=== PATIENT | male | born 1940 | race Caucasian/White ===

== ENCOUNTER 2016-11-24 11:21 | Observation (INO) | payer MEDICARE ==
[~2016-11-24] VITALS: Ht 167.6 cm; Wt 74.0 kg
[~2016-11-24 11:21] MED LIST: ASP81TEC; NAM10; ZAN150T; [UNRECOGNIZED DRUG - OTHER]
[2016-11-24 11:39] VITALS: BP 158/91; PULSE 66; RESP 12; O2SAT 99
--- NOTE | 2016-11-24 11:44 | ED.REPORT ---
HPI-Trauma Minor / Fall Date of Service Nov 24, 2016 ED Provider: Casandra Vela History of Present Illness: fell in the night at some point, no clothes on. 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 Increase in falls 4 times yesterday, right wrist, decline in ambulation. minimally verbal, ploudre is primary care. Nursing Notes Stated Complaint: GLF Chief Complaint: General Complaint Nursing Notes Reviewed: Yes Allergies: Coded Allergies: No Known Allergies (Verified , 02/04/08) Scheduled Donepezil (Donepezil) 10 Mg Tablet 10 MG PO HS Scheduled PRN diphenhydrAMINE HCl (Benadryl) 25 Mg Capsule 25 MG PO HS PRN PRN General Time Seen by MD: 11:42 Chief Complaint Fall Hx Obtained From: Daughter Symptom Duration: Since onset Caused by: Accidental Past Medical History Past Medical History Alzheimers Denies: Asthma, Diabetes mellitus Past Surgical History None reported Smoking History Former Smoker (smoked when he was younger), Unknown if Ever Smoker Social History Alcohol Use: "Social" Other Social History: 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 Review of Systems Basic Review of Systems Cardiovascular: No chest pain, No dyspnea on exertion, No orthopnea, No parox noct dyspnea, No palpitations Hematologic: No bleeding, No bruising Psychiatric: Normal thought content Physical Exam Initial Vital Signs Vital Signs (First) Date Time Temp Pulse Resp B/P Pulse Ox O2 Delivery O2 Flow Rate FiO2 11/24/16 11:39 36.6 66 12 158/91 99 Room Air Initial VS: Reviewed, Vital signs normal Head / Eyes: Atraumatic, Normocephalic, PERRL Lymphatic: No lymphadenopathy Psychiatric: Mood/affect normal, Behavior normal, Normal thought content General/Constitutional: Awake, Alert Appearance / Presentation: Positive: Appears older than age, Cachectic, Frail, Underweight Neck: Atraumatic, Supple, No meningismus Respiratory / Chest: Atraumatic, Breath sounds NL, Breath sounds = bilat, No respiratory distress Cardiovascular: Heart rate NL, Regular rhythm, Heart sounds NL, No gallop Abdomen: Atraumatic, Soft, Non-tender Color / Condition: Positive: Rash present Rash / Lesion Notes: patient with rash in groin area with skin break down in skin fold of legs and groin. Chest has mild erthyma in areas. was laying on carpet for unknown length of time Interpretation & Diagnostics Interpretation & Diagnostics: PROCEDURE: X-RAY RIGHT WRIST COMPLETE, MINIMUM THREE VIEWS ([id number]) INDICATIONS: fall TECHNIQUE: 3 views of the wrist were acquired. COMPARISON: None. FINDINGS: Bones: No fractures or dislocations. No suspicious bony lesions. Multilevel joint narrowing, most notably in severe involving the distal radioulnar and first CMC joints. Scaphoid view: Not requested. Soft tissues: No suspicious soft tissue calcifications. IMPRESSION: No displaced fracture seen. If there is continued pain, followup exam or additional imaging such as MRI or CT could be performed for further assessment. Dictated by: Caleb MIRAMONTES Interpreted: Catherine Hamlin MD on 11/24/2016 at 14:04 Transcribed by: AMBROCIO on 11/24/2016 at 14:05 Lab Results Interpretation Result Diagram: 11/24/16 1235 11/24/16 1235 Test 11/24/16 12:17 11/24/16 12:35 Urine Color Yellow (YELLOW) Urine Appearance Hazy (CLEAR,HAZY) Urine pH 5.5 (5.0-8.0) Urine Specific [place] 1.025 (1.003-1.035) Urine Protein Negativemg/dL (NEG,TRACE) Urine Glucose (UA) Negativemg/dL (NEGATIVE) Urine Ketones Tracemg/dL (NEGATIVE) Urine Occult Blood Trace (NEGATIVE) Urine Nitrite Negative (NEGATIVE) Urine Bilirubin Negative (NEGATIVE) Urine Urobilinogen Normalmg/dL (NORMAL) Urine Leukocyte Esterase Negative (NEGATIVE) Urine RBC 0-2/hpf (0-2) Urine WBC 0-5/hpf (0-5) Urine Epithelial Cells Occasional/hpf (NONE-MOD) Urine Crystals None seen (NONE SEEN) Urine Bacteria None/hpf (NONE-FEW) Urine Hyaline Casts Occasional/lpf (NONE) Urine Granular Casts None seen (NONE SEEN) Urine Waxy Casts None seen (NONE SEEN) Urine Red Blood Cell Casts None seen (NONE SEEN) Urine White Blood Cell Casts Rare (NONE SEEN) Urine Mucus Present (None Seen) Urine Trichomonas None seen (NONE SEEN) Urine Yeast None (NONE SEEN) Urinalysis Comment None Urine Culture Reflexed Not indicated White Blood Count 7.2th/mm3 (3.8-10.1) Red Blood Count 4.57mil/mm3 (4.40-5.80) Hemoglobin 14.4g/dL (13.8-17.2) Hematocrit 40.4% (41.0-50.0) Mean Corpuscular Volume 88.4fL (81-100) Mean Corpuscular Hemoglobin 31.5pg (27.0-35.0) Mean Corpuscular Hemoglobin Concent 35.6% (32.0-37.0) Red Cell Distribution Width 12.6% (12.3-15.4) Platelet Count 166bil/L (150-400) Neutrophils (%) (Auto) 72.2% (40-74) Lymphocytes (%) (Auto) 18.0% (14-46) Monocytes (%) (Auto) 9.0% (4-12) Eosinophils (%) (Auto) 0.6% (0-5) Basophils (%) (Auto) 0.1% (0-3) Sodium Level 144mEq/L (134-144) Potassium Level 3.8mEq/L (3.5-5.2) Chloride Level 107mEq/L (97-108) Carbon Dioxide Level 22mmol/L (18-29) Blood Urea Nitrogen 20mg/dL (8-27) Creatinine 0.79mg/dL (0.76-1.27) Estimat Glomerular Filtration Rate 102mL/min (>59) Glucose Level 87mg/dL (60-99) Lactic Acid Level 1.7mmol/L (0.4-2.0) Calcium Level 8.9mg/dL (8.5-10.1) Total Bilirubin 0.6mg/dL (0.0-1.2) Aspartate Amino Transf (AST/SGOT) 20U/L (0-50) Alanine Aminotransferase (ALT/SGPT) 11U/L (0-44) Alkaline Phosphatase 104U/L (25-160) Total Creatine Kinase 294U/L (21-232) Pro-B-Type Natriuretic Peptide 715.5pg/mL (0-486) Total Protein 6.5g/dL (6.4-8.4) Albumin 3.7g/dL (3.4-5.0) X-Ray Chest Interpretation Chest Xray Interpretation: ROCEDURE: X-RAY CHEST ONE VIEW ([id number]) INDICATIONS: fall TECHNIQUE: One view of the chest was acquired. COMPARISON: None. FINDINGS: Surgical changes and devices: None. Lungs and pleura: No pleural effusions or pneumothorax. Lungs are clear. Mediastinum: Mediastinal contours appear normal. Heart size is normal. Bones and chest wall: No suspicious bony lesions. Overlying soft tissues appear unremarkable. IMPRESSION: No acute cardiopulmonary disease. Dictated by: Caleb MIRAMONTES Interpreted: Catherine Hamlin MD on 11/24/2016 at 14:16 Transcribed by: AMBROCIO on 11/24/2016 at 14:16 X-Ray Interpretation Xray Interpretation: PROCEDURE: X-RAY PELVIS WITH BILATERAL HIPS, 3 VIEWS INDICATIONS: fall TECHNIQUE: AP pelvis with lateral view(s) of the right hip(s). COMPARISON: None. FINDINGS: Bones: No fractures or dislocations. Pelvic ring appears intact. No suspicious bony lesions. Soft tissues: The visualized bowel gas pattern is normal. No suspicious soft tissue calcifications. IMPRESSION: No displaced fracture seen. If there is continued pain, followup exam or additional imaging such as MRI or CT could be performed for further assessment. Dictated by: Caleb MIRAMONTES Interpreted: Catherine Hamlin MD on 11/24/2016 at 14:16 Transcribed by: AMBROCIO on 11/24/2016 at 14:17 CT Head Interpretation INDICATIONS: fall TECHNIQUE: Noncontrast 4.5 mm thick angled axial sections acquired from the foramen magnum to the vertex, with coronal reformats. COMPARISON: [facility], CT, CT BRAIN WO CON, 03/31/2016, 23:48. [facility], CT, BRAIN W/O CONTRAST, 02/26/2015, 16:34. [facility] , CT, BRAIN W/O CONTRAST, 01/21/2007, 11:29. FINDINGS: Image quality: Excellent. CSF spaces: Basal cisterns are patent. No extra-axial fluid collections. The ventricles are symmetric in size and shape. Brain: No intracranial bleeds or masses. There is cerebral volume loss for age, with resultant ventricular and sulcal prominence. There are periventricular and deep white matter chronic small vessel ischemic changes. There is intracranial internal carotid artery atherosclerosis. Skull and face: Calvarium and visualized facial bones appear intact, without suspicious lesions. Sinuses: Left maxillary sinus retention cyst. Mild left maxillary sinus mucosal thickening. Left sphenoid sinus retention cyst. IMPRESSION: 1. No acute intracranial abnormality. 2. Sinus disease. Dictated by: Alyson Mendez M.D. on 11/24/2016 at 13:40 Re-Eval/Medical Decision Med Decision/Clinical Course 76 year old male with dementia presents via medics for found down in house this am. Patient was undressed and found laying on chest on carpet with stool incontinence. Work up included EKG, negative troponin, negative head CT, negative chest x-ray, labs normal, pelvis x-ray is negative for fracture as is right wrist. Physical therapy to ER to do evualation. PT states not safe to go home. Patient needs a higher level of care. Discharge & Departure Impression: Primary Impression: Gait disturbance Additional Impressions: Frequent falls Dementia Dementia type: Alzheimer's disease Dementia behavioral disturbance: with behavioral disturbance Disposition: ADMITTED TO HOSPITAL Referrals: Bin Franks MD (PCP) EDSupervising Provider for APC: Jose Gibbs MD copies to: Bin Franks MD, Sue ARNP Nov 24, 2016 11:44
[2016-11-24] MEDS ORDERED: 0.9% Sodium Chloride 1,000 ML IV ONE (12:20)
[2016-11-24 12:41] LABS: BASOPHILS % (AUTO) 0.1 % (0-3); EOSINOPHILS % (AUTO) 0.6 % (0-5); Mean Corpuscular Hemoglobin 31.5 pg (27.0-35.0); Mean Corpuscular Volume 88.4 fL (81-100); NEUTROPHILS % (AUTO) 72.2 % (40-74); Platelet Count 166 bil/L (150-400)
[2016-11-24 13:24] LABS: APPEARANCE,URINE HAZY (CLEAR,HAZY); COLOR,URINE YELLOW (YELLOW); PH,URINE 5.5 (5.0-8.0)
[2016-11-24 13:25] LABS: OCCULT BLOOD,URINE TRACE (NEGATIVE); UROBILINOGEN,URINE NORMAL (NORMAL)
[2016-11-24 13:26] LABS: TROPONIN T < 0.010 ug/L (0.0-0.011)
[2016-11-24 13:27] LABS: Creatine Kinase 294 U/L (21-232)
--- NOTE | 2016-11-24 13:42 | DRSVH ---
PROCEDURE: CT BRAIN WITHOUT CONTRAST ([id number]) INDICATIONS: fall TECHNIQUE: Noncontrast 4.5 mm thick angled axial sections acquired from the foramen magnum to the vertex, with c oronal reformats. COMPARISON: [facility], CT, CT BRAIN WO CON, 03/31/2016, 23:48. [facility], CT, BRAIN W/O CONTRAST, 02/26/2015, 16:34. [facility] , CT, BRAIN W/O CONTRAST, 2006, 11:29. FINDINGS: Image quality: Excellent. CSF spaces: Basal cisterns are patent. No extra-axial fluid collections. The ventricles are symmet angela in size and shape. Brain: No intracranial bleeds or masses. There is cerebral volume loss for age, with resultant vent ricular and sulcal prominence. There are periventricular and deep white matter chronic small vessel ischemic changes. There is intracranial internal carotid artery atherosclerosis. Skull and face: Calvarium and visualized facial bones appear intact, without suspicious lesions. Sinuses: Left maxillary sinus retention cyst. Mild left maxillary sinus mucosal thickening. Left sphe noid sinus retention cyst. IMPRESSION: 1. No acute intracranial abnormality. 2. Sinus disease. Dictated by: Alyson Mendez M.D. on 11/24/2016 at 13:40 Approved by: Alyson Mendez M.D. on 11/24/2016 at 13:41
--- NOTE | 2016-11-24 14:05 | DRSVH ---
PROCEDURE: X-RAY RIGHT WRIST COMPLETE, MINIMUM THREE VIEWS ([id number]) INDICATIONS: fall TECHNIQUE: 3 views of the wrist were acquired. COMPARISON: None. FINDINGS: Bones: No fractures or dislocations. No suspicious bony lesions. Multilevel joint narrowing, most notably in severe involving the distal radioulnar and first CMC joints. Scaphoid view: Not requested. Soft tissues: No suspicious soft tissue calcifications. IMPRESSION: No displaced fracture seen. If there is continued pain, followup exam or additional vargas ging such as MRI or CT could be performed for further assessment. Dictated by: Caleb Patton [facility] Interpreted: Catherine Hamlin MD on 11/24/2016 at 14:04 Transcribed by: AMBROCIO on 11/24/2016 at 14:05 Approved by: Catherine Hamlin MD, PhD on 11/24/2016 at 17:03
--- NOTE | 2016-11-24 14:17 | DRSVH ---
PROCEDURE: X-RAY PELVIS WITH BILATERAL HIPS, 3 VIEWS INDICATIONS: fall TECHNIQUE: AP pelvis with lateral view(s) of the right hip(s). COMPARISON: None. FINDINGS: Bones: No fractures or dislocations. Pelvic ring appears intact. No suspicious bony lesions. Soft tissues: The visualized bowel gas pattern is normal. No suspicious soft tissue calcifications. IMPRESSION: No displaced fracture seen. If there is continued pain, followup exam or additional vargas ging such as MRI or CT could be performed for further assessment. Dictated by: Caleb Patton RRA Interpreted: Catherine Hamlin MD on 11/24/2016 at 14:16 Transcribed by: AMBROCIO on 11/24/2016 at 14:17 Approved by: Catherine Hamlin MD, PhD on 11/24/2016 at 17:04
--- NOTE | 2016-11-24 14:17 | DRSVH ---
PROCEDURE: X-RAY CHEST ONE VIEW ([id number]) INDICATIONS: fall TECHNIQUE: One view of the chest was acquired. COMPARISON: None. FINDINGS: Surgical changes and devices: None. Lungs and pleura: No pleural effusions or pneumothorax. Lungs are clear. Mediastinum: Mediastinal contours appear normal. Heart size is normal. Bones and chest wall: No suspicious bony lesions. Overlying soft tissues appear unremarkable. IMPRESSION: No acute cardiopulmonary disease. Dictated by: Caleb Patton [facility] Interpreted: Catherine Hamlin MD on 11/24/2016 at 14:16 Transcribed by: AMBROCIO on 11/24/2016 at 14:16 Approved by: Catherine Hamlin MD, PhD on 11/24/2016 at 17:04
[2016-11-24 14:40] VITALS: BP 139/74; PULSE 78; PULSE 87; RESP 16; O2SAT 100
--- NOTE | 2016-11-24 15:16 | NUR ---
Evaluation completed. Please go to "Notes" then click on "Assessments and Notes" (bottom left corner of screen). Then select appropriate discipline tab on top of screen.
[2016-11-24] MEDS ORDERED: DIPH25CA6 PO (16:38)
[2016-11-24] MEDS ORDERED: DONE10TA42 PO (16:38)
[2016-11-24] MEDS ORDERED: Alum-Mag Hydrox-Simeth 30 mL Suspension PO PRN (16:40)
[2016-11-24] MEDS ORDERED: Ondansetron 2 mg/mL 2 mL Inj IVPUSH PRN (16:40)
--- NOTE | 2016-11-24 16:46 | PCM.HPMED ---
Subjective Date of Service Nov 24, 2016 Primary Provider: Admitting Physician: Primary Care Physician: Bin Franks MD Attending Physician: Chief Complaint: Found down at home HISTORY was OBTAINED FROM daughter / MEDITECH NOTES History of present illness 76-year-old man with chronic Alzheimer's, fell 4 times yesterday, ie more than baseline x 2 days of falling. When awoken up at 10am, she found him in the living room, and found down with his clothes off with dried and wet stool. In the ER, 1 L normal saline, per PT gait was unstable, noted to have unstable gait today. Pt tends to wander at night. no spine injuries. no new medications. his mumbled speech is baseline per daughter. has visual hallucinations. no vomiting. In the villarreal, ongoing fecal incontinence noted. pt does not wear adult diapers at home. fecal incontinence at baseline is every other month. has control over urine, no sick contacts. "bad knees" never cardiac hx. no symptoms of sinus issues. Review of Systems -unable to give a good hx FAMILY HX father passed from [place] SOCIAL HX no alcohol, distant smoker MEDICATIONS Aspirin-Expunged Drug, Do Not Renew! (Aspirin EC-Expunged Drug, Do Not Renew!) 81 Mg Tablet Memantine-Expunged Drug, Do Not Renew! (Namenda-Expunged Drug, Do Not Renew!) 10 Mg Tablet Ranitidine 150 MG Tablet (Zantac 150 MG Tablet) 150 Mg Tab Past Medical/Surgical HX Psoriasis Alzheimer's GERD Cataracts Limited Parkinson's features tremors Osteoarthritis sleep apnea, noncompliant Exam on admission on room air NAD A and O x 3 mood affect WNL, tremors, poorly cooperative w/ exam NC/AT no icterus no injected eyes EOMI PERRL /no pharyngeal lesions/ no oral lesions / hearing intact Supple neck CTAB equal chest rise / no accessory muscle use / speaks in full sentences / no rrw RRR S1 S2 / no mrg / 2+ radial pulses Soft nt nd + BS no hepatosplenomegaly No edema no cyanosis no ecchymosis of lower extremities No rash / no jaundice HAQUE mumbles , attempts to get out of bed frequently symmetrical facies STudies Trop negative BNP 715 lactic acid negative UA negative LFT negative Imaging PROCEDURE: CT BRAIN WITHOUT CONTRAST ([id number]) INDICATIONS: fall TECHNIQUE: Noncontrast 4.5 mm thick angled axial sections acquired from the foramen magnum to the vertex, with coronal reformats. COMPARISON: [facility], CT, CT BRAIN WO CON, 03/31/2016, 23:48. [facility], CT, BRAIN W/O CONTRAST, 02/26/2015, 16:34. [facility] , CT, BRAIN W/O CONTRAST, 01/21/2007, 11:29. FINDINGS: Image quality: Excellent. CSF spaces: Basal cisterns are patent. No extra-axial fluid collections. The ventricles are symmetric in size and shape. Brain: No intracranial bleeds or masses. There is cerebral volume loss for age , with resultant ventricular and sulcal prominence. There are periventricular and deep white matter chronic small vessel ischemic changes. There is intracranial internal carotid artery atherosclerosis. Skull and face: Calvarium and visualized facial bones appear intact, without suspicious lesions. Sinuses: Left maxillary sinus retention cyst. Mild left maxillary sinus mucosal thickening. Left sphenoid sinus retention cyst. IMPRESSION: 1. No acute intracranial abnormality. 2. Sinus disease. PROCEDURE: X-RAY CHEST ONE VIEW ([id number]) INDICATIONS: fall TECHNIQUE: One view of the chest was acquired. COMPARISON: None. FINDINGS: Surgical changes and devices: None. Lungs and pleura: No pleural effusions or pneumothorax. Lungs are clear. Mediastinum: Mediastinal contours appear normal. Heart size is normal. Bones and chest wall: No suspicious bony lesions. Overlying soft tissues appear unremarkable. IMPRESSION: No acute cardiopulmonary disease. PROCEDURE: X-RAY PELVIS WITH BILATERAL HIPS, 3 VIEWS INDICATIONS: fall TECHNIQUE: AP pelvis with lateral view(s) of the right hip(s). COMPARISON: None. FINDINGS: Bones: No fractures or dislocations. Pelvic ring appears intact. No suspicious bony lesions. Soft tissues: The visualized bowel gas pattern is normal. No suspicious soft tissue calcifications. IMPRESSION: No displaced fracture seen. If there is continued pain, followup exam or additional imaging such as MRI or CT could be performed for further assessment. PROCEDURE: X-RAY RIGHT WRIST COMPLETE, MINIMUM THREE VIEWS ([id number]) INDICATIONS: fall TECHNIQUE: 3 views of the wrist were acquired. COMPARISON: None. FINDINGS: Bones: No fractures or dislocations. No suspicious bony lesions. Multilevel joint narrowing, most notably in severe involving the distal radioulnar and first CMC joints. Scaphoid view: Not requested. Soft tissues: No suspicious soft tissue calcifications. IMPRESSION: No displaced fracture seen. If there is continued pain, followup exam or additional imaging such as MRI or CT could be performed for further assessment. Active issues and reason for admission Generalized weakness, baseline mentation, knee arthritis, wanders due to Alzheimers, intermittent fecal incontinence at home -- TSH serial troponin bladder scan --elevated BNP - pending echo, no CHF symptom - never cardiac hx per daughter though Groin erythema diarrhea --nystatin powder -- Stool culture / c diff Chronic issues known prior to admission, present on admission Psoriasis Alzheimer's GERD Cataracts Limited Parkinson's features tremors Osteoarthritis sleep apnea, noncompliant Diet regular diet DVT prophylaxis falling, just scd ambulate Code Full - daughter to talk w/ mother and sister for update tomorrow Disposition OBS status social service director to be consultative, per PT not a candidate for rehabilitation due to Alzheimer's, not a candidate to go home is 74 years old and cannot provide 24 hour 7 day a week care for him Assessment and plan were discussed with daughter Hodan. Allergies Coded Allergies: No Known Allergies (Verified , 02/04/08) PMH Social History Hx Alcohol Use: No Hx Substance Use: No Smoking Status: Former Smoker (smoked when he was younger), Unknown if Ever Smoker Exam Vital Signs Vital Sign - Last Date Time Temp Pulse Resp B/P Pulse Ox O2 Delivery O2 Flow Rate FiO2 11/24/16 14:40 35.3 87 16 139/74 100 Room Air Lab and Diagnostics Result Diagram: 11/24/16 1235 11/24/16 1235 Rosanna Marie MD Nov 24, 2016 16:46
--- NOTE | 2016-11-24 18:45 | NUR ---
Admit Patient admitted to [facility] via gurney, oriented to self only. Limited verbal response otherwise pleasant. Family in bedside, oriented to room and unit. IV on left wrist, saline lock, patent. Family concerned of him being awake tonight, rose marie alarm in placed. SWW to follow up placement to residential care Memory in the morning. Admission assessment to be finished by ALEX RN. Thanks.
[2016-11-24 18:50] VITALS: BP 154/70; PULSE 59; RESP 17; O2SAT 98
[2016-11-24] MEDS ORDERED: diphenhydrAMINE 25 mg Capsule PO PRN (21:15)
[2016-11-25 02:51] VITALS: BP 156/79; PULSE 59; RESP 17; O2SAT 99
--- NOTE | 2016-11-25 06:04 | NUR ---
Shift Note Assumed pt care at 1900, pt alert only to self, baseline confusion, redirectable, pt up to bsc x1, occasionally dribbles urine wears adult briefs, IV on L wrist SL, pt placed close to nursing station, bed and rose marie alarm on for safety, qhrly checks done throughout night.
--- NOTE | 2016-11-25 06:52 | PCM.PNMED ---
Subjective Date of Service Nov 25, 2016 Subjective no events overnight - unsafe at home - needing memory care unit. no reports of sob/cp - confused Exam Vital Signs Vital Sign - Last Date Time Temp Pulse Resp B/P Pulse Ox O2 Delivery O2 Flow Rate FiO2 11/25/16 02:51 36.9 59 17 156/79 99 Room Air Intake and Output 11/24/16 11/24/16 11/25/16 Cumulative From/Thru 15:00 23:00 07:00 11/24/16 11:39 - 11/25/16 05:01 Intake Total 1000 ml 100 ml 1100 ml Output Total 350 ml 350 ml Balance 1000 ml -250 ml 750 ml Intake Oral 100 ml 100 ml IV Total 1000 ml 1000 ml Output Urine Total 350 ml 350 ml Bladder Scan Volume Amount 244 # Voids 2 2 Exam NAD A/0x1 NC/AT no icterus no injected eyes EOMI PERRL /no pharyngeal lesions/ no oral lesions Supple neck, no jvd CTAB equal chest rise / no accessory muscle use / speaks in full sentences / no rrw RRR S1 S2 / no mrg / 2+ radial pulses Soft nt nd + BS no hepatosplenomegaly No edema no cyanosis no ecchymosis of lower extremities No rash / no jaundice HAQUE no focal deficits IVs and Medications Medications Reviewed: Medications were reviewed in detail Lab and Diagnostics Result Diagram: 11/24/16 1235 11/24/16 1235 X-Rays, CTs and MRIs CT IMPRESSION: 1. No acute intracranial abnormality. 2. Sinus disease. Dictated by: Alyson Mendez M.D. on 11/24/2016 at 13:40 Assessment & Plan Active issues and reason for admission Generalized weakness, baseline mentation, knee arthritis, wanders due to Alzheimers, intermittent fecal incontinence at home -- TSH, neg troponin --elevated BNP - pending echo, no CHF symptom - never cardiac hx per daughter though Groin erythema diarrhea --nystatin powder -- Stool culture / c diff, pending Chronic issues known prior to admission, present on admission Psoriasis Alzheimer's GERD Cataracts Limited Parkinson's features tremors Osteoarthritis sleep apnea, noncompliant Diet regular diet DVT prophylaxis falling, just scd ambulate Code Full - daughter to talk w/ mother and sister for update tomorrow - needs placement, appreiciate SW help Disposition OBS status social security benefits interviewer to be consultative, per PT not a candidate for rehabilitation due to Alzheimer's, not a candidate to go home is 74 years old and cannot provide 24 hour 7 day a week care for him Pain Evaluation: Adequate Pain Control GI Prophylaxis: Not indicated VTE Prophylaxis: Sub-Q Heparin (Unfractionated) Resuscitation Status: CPR: Attempt Resuscitation Time spent 35 minutes spent with eval and mgmt Attending Statement Dispo: pending placement or family plans for private care? Michael Del Rosario DO Nov 25, 2016 06:52
[2016-11-25 07:50] LABS: BASOPHILS % (AUTO) 0.2 % (0-3); EOSINOPHILS % (AUTO) 4.8 % (0-5); MONOCYTES % (AUTO) 8.8 % (4-12); Mean Corpuscular Hemoglobin 31.7 pg (27.0-35.0); Mean Corpuscular Volume 89.2 fL (81-100); NEUTROPHILS % (AUTO) 54.5 % (40-74); Platelet Count 160 bil/L (150-400)
[2016-11-25 08:10] LABS: Free Thyroxine Index 2.5 (1.2-4.9); Thyroxine (T4) 8.2 ug/dL (4.5-12.0)
[2016-11-25] MEDS: Nystatin 100,000 Unit/Gm 15 Gm Powder TOPICAL SCH ×2 (08:14→08:30)
[2016-11-25] MEDS ORDERED: Heparin 5,000 Unit/mL Inj SUBQ SCH (08:30)
--- NOTE | 2016-11-25 08:30 | NUR ---
Nystatin No redness noted in groin region, powder not applied.
--- NOTE | 2016-11-25 08:43 | NUR ---
mobility Pt attempting to get OOB. Had both legs over side rail. Easily re-directable Stating mom is in hospital in [facility] Thinks he is 89 years old.
--- NOTE | 2016-11-25 10:26 | NUR ---
daughter reports mentation and alertness is better than it has been in weeks. She reports pt able to dress self (clothes not always matching) Usually stays home, able to ambulate per self Dtr cooks/cleans/showers - when allows. hx sleep apnea - has refused cpap mask x1yr. has frequent rest periods - partially due to alzheimers/jessee
[2016-11-25 11:10] VITALS: BP 144/83; PULSE 58; RESP 20; O2SAT 99
--- NOTE | 2016-11-25 12:42 | NUR ---
FIDE explained to pt's daughter who is at bedside and signed, copy provided. Notice of nonpayment was explained, and signed by pt's yesterday.
--- NOTE | 2016-11-25 13:57 | PCM.DIMED ---
Discharge Instructions Date of Service Nov 25, 2016 Dates of Hospitalization Nov 24, 2016 at 16:39 Discharge Diagnosis Discharge Diagnosis Generalized weakness, baseline mentation, knee arthritis, wanders due to Alzheimers, intermittent fecal incontinence at home -- TSH-nl, neg troponin --elevated BNP - pending echo, but without clinical sx of CHF -per daughter no cardiac hx Groin erythema diarrhea --nystatin powder- to continue BID until symptoms resolved Chronic issues known prior to admission, present on admission Psoriasis Alzheimer's GERD Cataracts Limited Parkinson's features tremors Osteoarthritis sleep apnea, noncompliant Medication Instructions nystatin powder prescribed Test Results cardiac echo completed Diet No restrictions Activity Home Health Phyical Therapy Patient Instructions Please f/u with your PCP in 1 week you have been discharged with home health PT to optimized your function and strength/mobility Follow-up plan as above Follow-up Provider: Bin Franks MD Follow-up with PCP in: 1 week Michael Del Rosario DO Nov 25, 2016 13:57
--- NOTE | 2016-11-25 14:09 | NUR ---
ECHO Called [email or web address] inquiring when results would be posted to chart as DC is pending on the results. They stated that a message will be sent to Dr Cummins stating this. Will continue to monitor.
[2016-11-25] MEDS ORDERED: NYST1POW25 TOPICAL (14:45)
--- NOTE | 2016-11-25 14:50 | PCM.DC.MED ---
Discharge Summary Date of Service Nov 25, 2016 Dates of Hospitalization Date of Hospital Admission Nov 24, 2016 at 16:39 Date of Discharge: Nov 25, 2016 Providers: Admitting Physician: Rosanna Marie MD Primary Care Physician: Bin Franks MD Attending Physician: Rosanna Marie MD Diagnosis at Time of Discharge Diagnosis at Time of Discharge Generalized weakness, baseline mentation, knee arthritis, wanders due to Alzheimers, intermittent fecal incontinence at home Groin erythem Chronic issues known prior to admission, present on admission Psoriasis Alzheimer's GERD Cataracts Limited Parkinson's features tremors Osteoarthritis sleep apnea, noncompliant Procedures XRay, CTs & MRIs CT IMPRESSION: 1. No acute intracranial abnormality. 2. Sinus disease. Dictated by: Alyson Mendez M.D. on 11/24/2016 at 13:40 Other Diagnostics neg pelvis, wrist, chest, and brain CT Brief History HPI as per admitting physician: History of present illness 76-year-old man with chronic Alzheimer's, fell 4 times yesterday, ie more than baseline x 2 days of falling. When awoken up at 10am, she found him in the living room, and found down with his clothes off with dried and wet stool. In the ER, 1 L normal saline, per PT gait was unstable, noted to have unstable gait today. Pt tends to wander at night. no spine injuries. no new medications. his mumbled speech is baseline per daughter. has visual hallucinations. no vomiting. In the villarreal, ongoing fecal incontinence noted. pt does not wear adult diapers at home. fecal incontinence at baseline is every other month. has control over urine, no sick contacts. "bad knees" never cardiac hx. no symptoms of sinus issues. Review of Systems -unable to give a good hx Hospital Course Active issues and reason for admission Generalized weakness, baseline mentation, knee arthritis, wanders due to Alzheimers, intermittent fecal incontinence at home -- TSH, neg troponin --elevated BNP - pending echo, no CHF symptom - never cardiac hx per daughter though Groin erythema diarrhea --nystatin powder -- Stool culture / c diff, pending Chronic issues known prior to admission, present on admission Psoriasis Alzheimer's GERD Cataracts Limited Parkinson's features tremors Osteoarthritis sleep apnea, noncompliant Diet regular diet DVT prophylaxis falling, just scd ambulate Code Full - daughter to talk w/ mother and sister for update tomorrow - needs placement, appreiciate SW help Disposition OBS status healthcare social worker to be consultative, per PT not a candidate for rehabilitation due to Alzheimer's, not a candidate to go home is 74 years old and cannot provide 24 hour 7 day a week care for him Exam Vital Signs (Last) Date Time Temp Pulse Resp B/P Pulse Ox O2 Delivery O2 Flow Rate FiO2 11/25/16 11:10 36.9 58 20 144/83 99 Room Air Exam NAD A/0x1 NC/AT no icterus no injected eyes EOMI PERRL /no pharyngeal lesions/ no oral lesions Supple neck, no jvd CTAB equal chest rise / no accessory muscle use / speaks in full sentences / no rrw RRR S1 S2 / no mrg / 2+ radial pulses Soft nt nd + BS no hepatosplenomegaly No edema no cyanosis no ecchymosis of lower extremities No rash / no jaundice HAQUE no focal deficits Test 11/24/16 12:17 11/24/16 12:25 11/24/16 12:35 11/24/16 18:06 Urine Color Yellow (YELLOW) Urine Appearance Hazy (CLEAR,HAZY) Urine pH 5.5 (5.0-8.0) Urine Specific [place] 1.025 (1.003-1.035) Urine Protein Negativemg/dL (NEG,TRACE) Urine Glucose (UA) Negativemg/dL (NEGATIVE) Urine Ketones Tracemg/dL (NEGATIVE) Urine Occult Blood Trace (NEGATIVE) Urine Nitrite Negative (NEGATIVE) Urine Bilirubin Negative (NEGATIVE) Urine Urobilinogen Normalmg/dL (NORMAL) Urine Leukocyte Esterase Negative (NEGATIVE) Urine RBC 0-2/hpf (0-2) Urine WBC 0-5/hpf (0-5) Urine Epithelial Cells Occasional/hpf (NONE-MOD) Urine Crystals None seen (NONE SEEN) Urine Bacteria None/hpf (NONE-FEW) Urine Hyaline Casts Occasional/lpf (NONE) Urine Granular Casts None seen (NONE SEEN) Urine Waxy Casts None seen (NONE SEEN) Urine Red Blood Cell Casts None seen (NONE SEEN) Urine White Blood Cell Casts Rare (NONE SEEN) Urine Mucus Present (None Seen) Urine Trichomonas None seen (NONE SEEN) Urine Yeast None (NONE SEEN) Urinalysis Comment None Urine Culture Reflexed Not indicated Lactic Acid Level 1.7mmol/L (0.4-2.0) Total Bilirubin 0.6mg/dL (0.0-1.2) Aspartate Amino Transf (AST/SGOT) 20U/L (0-50) Alanine Aminotransferase (ALT/SGPT) 11U/L (0-44) Alkaline Phosphatase 104U/L (25-160) Total Creatine Kinase 294U/L (21-232) Pro-B-Type Natriuretic Peptide 715.5pg/mL (0-486) Total Protein 6.5g/dL (6.4-8.4) Albumin 3.7g/dL (3.4-5.0) Ammonia 51ug/dL (18-53) Troponin T < 0.010ug/L (0.0-0.011) Thyroid Stimulating Hormone (TSH) 3.610uIU/mL (0.450-4.500) Free Thyroxine Index 2.5 (1.2-4.9) Thyroxine (T4) 8.2ug/dL (4.5-12.0) Triiodothyronine (T3) Uptake 30% (24-39) Test 11/25/16 07:15 White Blood Count 5.4th/mm3 (3.8-10.1) Red Blood Count 4.26mil/mm3 (4.40-5.80) Hemoglobin 13.5g/dL (13.8-17.2) Hematocrit 38.0% (41.0-50.0) Mean Corpuscular Volume 89.2fL (81-100) Mean Corpuscular Hemoglobin 31.7pg (27.0-35.0) Mean Corpuscular Hemoglobin Concent 35.5% (32.0-37.0) Red Cell Distribution Width 12.7% (12.3-15.4) Platelet Count 160bil/L (150-400) Neutrophils (%) (Auto) 54.5% (40-74) Lymphocytes (%) (Auto) 31.7% (14-46) Monocytes (%) (Auto) 8.8% (4-12) Eosinophils (%) (Auto) 4.8% (0-5) Basophils (%) (Auto) 0.2% (0-3) Sodium Level 143mEq/L (134-144) Potassium Level 3.8mEq/L (3.5-5.2) Chloride Level 108mEq/L (97-108) Carbon Dioxide Level 23mmol/L (18-29) Blood Urea Nitrogen 17mg/dL (8-27) Creatinine 0.89mg/dL (0.76-1.27) Estimat Glomerular Filtration Rate 89mL/min (>59) Glucose Level 93mg/dL (60-99) Calcium Level 8.8mg/dL (8.5-10.1) Discharge Medications Discharge Medications Donepezil (Donepezil) 10 Mg Tablet 10 MG PO HS (Reported) Nystatin (Nystatin) 1 Each Powder.ea. 1 APPLIC TOPICAL BID Prescribed by: GERARD JOHNSTON DO Additional med instructions nystatin powder prescribed Followup Plan Follow-up plan as above Discharge Diet: No restrictions Discharge Activity: Home Health Phyical Therapy Patient Instructions Please f/u with your PCP in 1 week you have been discharged with home health PT to optimized your function and strength/mobility Please apply nystatin powder twice daily to affected area until resolved or x 2wks with PCP f/u and discussion of sx Follow-up Provider: Bin Franks MD Follow-up with PCP in: 1 week Time spent 40 minutes spent with eval and mgmt copies to: Bin Franks MD, David DO Nov 25, 2016 14:50
--- NOTE | 2016-11-25 14:52 | DRSVH ---
[facility] [address] [place] [address] Echocardiogram Report Name: MARIAM OGLESBY EStudy Date: 11/25/2016 Height: 66 in Hospital Exam Location: [facility] Weight: 163 lb Gender: Male BSA: 1.8 m2 : 1940 Age: 76 yrs BP: 156/ 79 mmHg Reason For Study: Elevated BNP Ordering Physician: HOSPITALIST [facility] Performed By: Lalita Perez Referring Physician: Dr. Bin Franks Interpretation Summary Sinus bradycardia with frequent PAC's. Heart rate is 52-66 bpm. Normal LV size, wall thickness, wall motion and LV systolic function. EF is 60-65%. Stage I diastolic dysfunction. Aortic sclerosis without stenosis with mild associated AI. Otherwise no significant valvular abnormalities. Normal chamber sizes. No prior study available for comparison. Procedure: A two-dimensional transthoracic echocardiogram with color flow and Doppler was performed. There is no prior echocardiogram noted for this patient. The study quality was technically adequate. The patient was in sinus bradycardia with heart rates between 52-66 bpm during the exam. The patient had frequent PACs during the exam. Left Ventricle: The left ventricular cavity is small. There is normal left ventricular wall thickness. Left ventricular wall motion is normal. Assessment of diastolic parameters indicates a relaxation abnormality of the left ventricle, consistent with normal filling pressures. Right Ventricle: The right ventricle is normal in size and function. Atria: Both atria are normal in size. There is no Doppler evidence for an interatrial shunt. Mitral Valve: The mitral valve is grossly normal. There is no mitral regurgitation noted. Aortic Valve: The aortic valve is normal in structure and function. There is trace aortic regurgitation. Tricuspid Valve: The tricuspid valve is not well visualized, but is grossly normal. There is a trace or physiologic amount of tricuspid regurgitation. The right ventricular systolic pressure is estimated at 30 mmHg assuming a right atrial pressure of 8 mm Hg. Pulmonic Valve: The pulmonic valve is normal in structure and function. There is a trace or physiologic amount of pulmonic regurgitation. Great Vessels: The aortic root is normal size. The IVC is of normal diameter and collapses less than 50% with a sniff. This suggests a right atrial pressure of 8 mm Hg. Pericardium/ Pleura There is no pericardial effusion. MMode/2D Measurements & Calculations LVIDd: 4.1 cm RA long axis LVOT diam LVIDs: 2.5 cm LA A2 area: 14.8 cm FS: 39.1 % LA A4 area: 23.3 cm RA area Ao root diam IVSd: 0.83 cm LA length (vol): 5.3 cm LVPWd: 0.93 cm LA vol: 54.8 ml : 16.3 cm Aortic Jxn LA vol index RA vol: 46.3 ml : 2.7 cm RA : 25.2 mm2 IVC diam: 1.7 cm LV trejo. diameter/BSA LV sys. diameter/BSA RVD1 (basal) TAPSE: 2.4 cm (cm/m^2): 2.2 (cm/m^2): 1.4 Doppler Measurements & Calculations Ao V2 max MV E max huan MV E/A: 0.64 TR max huan : 108.2 cm/sec : 45.8 cm/sec Med Peak E' Huan : 234.0 cm/sec Ao max PG MV A max huan TR max PG : 4.7 mmHg : 71.4 cm/sec E/E' med: 11.2 : 21.9 mmHg Ao mean PG MV P1/2t: 80.3 msec Pulm A Revs Dur PA V2 max : 67.5 cm/sec LVOT Max Huan MV A dur: 0.12 sec PA mean PG : 66.3 cm/sec : 0.99 mmHg PA Accel Time URSULA(I,D): 2.4 cm : 0.13 sec sev ratio MV dec time MV P1/2t max huan Ao V2 mean LV V1 max PG : 0.27 sec : 67.2 cm/sec MVA(P1/2t): 2.7 cm2 Ao V2 VTI: 21.1 cm LV V1 VTI URSULA(V,D): 2.3 cm2 : 13.6 cm PA V2 mean URSULA indexed to BSA Pulm A Revs Dur - MV : 46.0 cm/sec (cm^2/m^2): 1.3 A Dur: 0.01 msec Reading Physician:02:48 PM
--- NOTE | 2016-11-25 16:24 | NUR ---
Social Work Note: Initial Assessment/Discharge Data& Assessment: EMR reviewed. [facility] met with pt and pt daughter Valerie ([phone]) at bedside to discuss discharge planning, SW role explained. Enrique Love is a 76 year old male hospitalized on 11/24/2016 for "unsafe to send home, needs higher level of care." Per MD pt is medically ready for discharge. Echo was negative. Pt has [employer] Medicare insurance coverage and sees Bin Yap MD for primary care. Pt lives in [place] with his spouse. Pt has Alzheimer's at baseline but is independent with most ADL's and ambulation without any DME. Pt does not have LTC insurance or VA benefits. Pt does not drive. Pt daughter brings meals to the home daily, does chores around the house and ensures pt is bathing. Pt had a recent fall and was found down with feces. Pt family was concerned about any injuries which pt was cleared from. Pt daughter has been working on Medicaid applications and LTC planning for the last few months. Pt daughter has been visiting local Memory care units and adult family homes to see which would be the best fit for pt. Pt daughter plans for pt to pay privately for LTC for pt, at least initially. Pt daughter recited many resources she already has at home and denied any needs from [facility]. Pt does meet criteria for Home health services, is homebound and is not at his baseline mobility due to fall. Pt family and MD are agreeable to home health PT, RN, JULIA, [facility] to follow pt at time of discharge. Pt daughter explained that pt is open with [employer] and they would prefer that company. F2F faxed to [facility] with [facility], access provided and verbal confirmation from [facility] took place. Pt daughter Yolanda transporting pt home today. Pt and pt family deny any other needs. No other discharge needs identified. MD notified and agreeable to plan. Plan: Per MD pt is medically ready to discharge home via POV with [facility] PT, RN, and [facility] and [facility]. Pt and pt family deny any other needs. No other discharge needs identified. All updated and agreeable to plan. JANEL Foley Addendum: 11/25/16 at 1632 by ANGIE WATTERS Amended: Links added.
--- NOTE | 2016-11-25 18:20 | NUR ---
Discharge Reviewed DC instructions with Daughter Hodan, stated understanding. All belongings taken. Pt taken out in w/ch to home in private auto with family. Script sent in packet.
== END 2016-11-25 18:20 | disposition home health service (06) ==
LOC: EDUNIT# 11:21 → SED 11:21 → EDBD 11:21 → MOC 16:39
PROVIDERS: ADMIT Urology; ATTEND Urology
DX: R53.1 Weakness (principal); R29.6 Repeated falls; G30.9 Alzheimer's disease, unspecified; F02.81 Dementia in other diseases classified elsewhere, unspecified severity, with behavioral disturbance; Z91.83 Wandering in diseases classified elsewhere; E11.9 Type 2 diabetes mellitus without complications; J45.909 Unspecified asthma, uncomplicated; K21.9 Gastro-esophageal reflux disease without esophagitis; L40.9 Psoriasis, unspecified; G47.30 Sleep apnea, unspecified; M17.9 Osteoarthritis of knee, unspecified; R15.9 Full incontinence of feces; R19.7 Diarrhea, unspecified; L53.9 Erythematous condition, unspecified; H26.9 Unspecified cataract; G20 Parkinson's disease
CPT/HCPCS: 36415; 51798; 70450; 71010; 73110; 73522; 80048; 80053; 81000; 82140; 82306; 82550; 83605; 83880; 84436; 84443; 84479; 84484; 85025; 87804; 93005; 96360; 97162; 99285; C8929; G0378; J1644; J7030

== ENCOUNTER 2017-03-18 08:36 | Inpatient (IN) | payer MEDICARE ==
[~2017-03-18] VITALS: Ht 167.6 cm; Wt 64.5 kg
[~2017-03-18 08:36] MED LIST changes: -ASP81TEC; +DONE10TA42 PO; -NAM10; +NYST1POW25 TOPICAL; -ZAN150T; -[UNRECOGNIZED DRUG - OTHER]
[2017-03-18 08:53] VITALS: BP 133/81; PULSE 74; RESP 20; O2SAT 98
--- NOTE | 2017-03-18 08:55 | ED.REPORT ---
HPI-General Illness Date of Service Mar 18, 2017 ED Provider: Tico Gomez MD A 76 year old male with a history of Alzheimer's and frequent GLF's presents to the ED via EMS from [facility] with decreased appetite that began earlier this morning. Patient was sent to the ED after his fig caprifier began to express concern when he refused to eat his breakfast this morning. The patient's daughter reports that he has been progressively declining since being placed in the home in 02/2017 and has not been eating much for the past 4 weeks. He has become increasingly weak and "lethargic" with less coherent speech. Patient was recently admitted in 11/2016 for generalized weakness and groin erythema. Nursing Notes Stated Complaint: DEMENTIA Chief Complaint: General Complaint Nursing Notes Reviewed: Yes Allergies: Coded Allergies: aripiprazole (Verified Allergy, Unknown, makes him "crazy", 03/18/17) quetiapine (Verified Allergy, Unknown, makes him "crazy", 03/18/17) Scheduled Aspirin (Aspirin) 81 Mg Tablet 81 MG PO DAILY Donepezil (Donepezil) 10 Mg Tablet 10 MG PO HS Ibuprofen (Ibuprofen) 800 Mg Tablet 800 MG PO DAILY Ranitidine (Ranitidine) 150 Mg Capsule 150 MG PO BID Trazodone (Trazodone) 50 Mg Tablet 25 MG PO HS Scheduled PRN Acetaminophen (Acetaminophen) 325 Mg Capsule 650 MG PO Q4H PRN PRN For Pain Bisacodyl (Dulcolax Rectal) 10 Mg Supp.rect 10 MG RC DAILY PRN PRN For Constipation Lorazepam (Lorazepam) 0.5 Mg Tablet 0.5 MG PO BID PRN PRN For Anxiety Magnesium Hydroxide (Milk of Magnesia) 400 Mg/5 Ml Oral.susp 30 ML PO DAILY PRN PRN For Constipation General Time Seen by MD: 08:54 Chief Complaint Other (Decreased appetite) Hx Obtained From: Patient Arrived By: Ambulance Sudden in Onset?: No Onset Occurred: More than a week ago... 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 Physical Exam Vital Signs Vital Signs Date Time Temp Pulse Resp B/P Pulse Ox O2 Delivery O2 Flow Rate FiO2 03/18/17 12:30 80 20 126/68 96 Room Air 03/18/17 12:00 95 22 142/76 96 Room Air 03/18/17 11:00 80 20 143/75 98 Room Air 03/18/17 08:53 37 74 20 133/81 98 Room Air Initial VS: Reviewed Neck: Supple, Non-tender, Full range of motion Extremities: Vascular intact, Neuro intact, No swelling, No tenderness Skin: Warm, Dry, No cyanosis General/Constitutional: Awake GENERAL: Verablly unresponsive Head / Eyes: Atraumatic, Normocephalic, PERRL ENT: Atraumatic, Airway patent Mouth: Positive: Mucous membranes dry Respiratory / Chest: Atraumatic, Breath sounds NL, Breath sounds = bilat, No respiratory distress Cardiovascular: Heart rate NL, Regular rhythm, Heart sounds NL, No murmurs Abdomen: Atraumatic, Soft Interpretation & Diagnostics Lab Results Interpretation Result Diagram: 03/18/17 0935 03/18/17 0935 Test 03/18/17 09:35 03/18/17 11:40 White Blood Count 8.6th/mm3 (3.8-10.1) Red Blood Count 4.89mil/mm3 (4.40-5.80) Hemoglobin 15.8g/dL (13.8-17.2) Hematocrit 44.6% (41.0-50.0) Mean Corpuscular Volume 91.2fL (81-100) Mean Corpuscular Hemoglobin 32.3pg (27.0-35.0) Mean Corpuscular Hemoglobin Concent 35.4% (32.0-37.0) Red Cell Distribution Width 13.2% (12.3-15.4) Platelet Count 149bil/L (150-400) Neutrophils (%) (Auto) 76.7% (40-74) Lymphocytes (%) (Auto) 16.0% (14-46) Monocytes (%) (Auto) 6.1% (4-12) Eosinophils (%) (Auto) 1.0% (0-5) Basophils (%) (Auto) 0.1% (0-3) Prothrombin Time 11.5sec (8.1-12.5) Prothromb Time International Ratio 1.07ratio Sodium Level 153mEq/L (134-144) Potassium Level 3.7mEq/L (3.5-5.2) Chloride Level 114mEq/L (97-108) Carbon Dioxide Level 24mmol/L (18-29) Blood Urea Nitrogen 31mg/dL (8-27) Creatinine 0.88mg/dL (0.76-1.27) Estimat Glomerular Filtration Rate 90mL/min (>59) Glucose Level 100mg/dL (60-99) Calcium Level 9.3mg/dL (8.5-10.1) Magnesium Level 2.4mg/dL (1.6-2.6) Total Bilirubin 1.8mg/dL (0.0-1.2) Aspartate Amino Transf (AST/SGOT) 25U/L (0-50) Alanine Aminotransferase (ALT/SGPT) 29U/L (0-44) Alkaline Phosphatase 102U/L (25-160) Total Protein 7.3g/dL (6.4-8.4) Albumin 3.8g/dL (3.4-5.0) Hold Mark Top Tube Received (Received) Hold Urine Received (Received) X-Ray Chest Interpretation Chest Xray Interpretation: IMPRESSION: No acute pulmonary process. Dictated by: Lynne Hart M.D. on 03/18/2017 at 9:55 Interpretation / Wet Read by: Interpret - Radiologist Re-Eval/Medical Decision Med Decision/Clinical Course 76-year-old male history of dementia sent in by school nurse facility for not eating well today. Per family he has not been eating well for quite some time. He appears quite dehydrated on exam. Sodium is 153. He chokes when swallowing water on bedside evaluation. Discussed extensively with family and they would like us to pursue admission for his hypernatremia and dehydration and difficulty eating. Admitted to hospitalist. I did discuss CODE STATUS with them and they requested DNR/DNI. Time of Eval: 09:11 Re-Evaluation/Progress Note: Family is offered a full work-up. They would like lab work and decline CT at this time. Time of Eval: 10:54 Re-Evaluation/Progress Note: Patient fails bedside swallow. Family agrees to meet with TELE RN to discuss hospice resources. Time of Eval: 11:27 Re-Evaluation/Progress Note: Family is informed of the patient's lab results and X-ray results. When asked about the discharge care plan, the patient's would like to have the pt admitted. Time of Eval: 11:30 Re-Evaluation/Progress Note: Code status is discussed with the patient's family. They express that the patient would like to be DNR/DNI. Consultation : Referral / Consult Name: LancasterRaegangemini HAJI Consulted With: Hospitalist Call Returned at: 11:53 Rap Artist: Will see patient, Agrees with eval, Agrees with plan, Accepts admit Counseled Regarding: Diagnosis, Lab results, Need for admission Discharge & Departure Primary Impression: Hypernatremia Additional Impressions: Dehydration Dementia Dementia type: Alzheimer's disease Alzheimer's disease onset: late-onset Dementia behavioral disturbance: without behavioral disturbance Qualified Code : G30.1 - Alzheimer's disease with late onset Dysphagia Dysphagia type: unspecified Qualified Code: R13.10 - Dysphagia, unspecified Disposition: ADMITTED TO HOSPITAL Discharge Condition All VS Reviewed: Yes Condition: Stable Referrals: Bin Franks MD (PCP) Scribe Attestation Portions of this note were transcribed by Guille Fairchild. I, Dr. Gomez personally performed the history, physical exam and medical decision-making; I reviewed and confirmed the accuracy of the information in the transcribed note. Signed by: Shabnam Cárdenas, 03/18/17 [id number]. copies to: Bin Franks MD, Ben M MD Mar 18, 2017 08:55 GUILLE FAIRCHILD Mar 18, 2017 09:02
[2017-03-18] MEDS ORDERED: 0.9% Sodium Chloride 500 ML IV ONE (09:15)
[2017-03-18] MEDS ORDERED: Ondansetron 2 mg/mL 2 mL Inj IVPUSH PRN ×2 (09:15→12:00)
--- NOTE | 2017-03-18 09:57 | DRSVH ---
PROCEDURE: X-RAY CHEST ONE VIEW, PORTABLE ([id number]) INDICATIONS: lethargy, altered mental status TECHNIQUE: One view of the chest was acquired. COMPARISON: [facility], CR, XR CHEST 1VW, 11/24/2016, 13:01. FINDINGS: Surgical changes and devices: None. Lungs and pleura: No pleural effusions or pneumothorax. Lungs are clear. Mediastinum: Mediastinal contours appear normal. Heart size is normal. Bones and chest wall: No suspicious bony lesions. Overlying soft tissues appear unremarkable. IMPRESSION: No acute pulmonary process. Dictated by: Lynne Hart M.D. on 03/18/2017 at 9:55 Approved by: Lynne Hart M.D. on 03/18/2017 at 9:55
[2017-03-18 10:09] LABS: BASOPHILS % (AUTO) 0.1 % (0-3); MONOCYTES % (AUTO) 6.1 % (4-12); Mean Corpuscular Hemoglobin 32.3 pg (27.0-35.0); Mean Corpuscular Volume 91.2 fL (81-100); NEUTROPHILS % (AUTO) 76.7 % (40-74); Platelet Count 149 bil/L (150-400)
[2017-03-18 10:12] LABS: INR 1.07 ratio
[2017-03-18 10:24] LABS: Magnesium 2.4 mg/dL (1.6-2.6)
[2017-03-18 11:00] VITALS: BP 143/75; PULSE 80; RESP 20; O2SAT 98
[2017-03-18] MEDS ORDERED: ASPI-973 PO (11:55)
[2017-03-18] MEDS ORDERED: RANI150C4 PO (11:56)
[2017-03-18] MEDS ORDERED: IBUP800T28 PO (11:56)
[2017-03-18] MEDS: Dextrose 5% 1,000 ML IV SCH ×2 (11:57→19:12)
[2017-03-18] MEDS ORDERED: LORA0.5T PO (11:57)
[2017-03-18] MEDS ORDERED: BISA10SU61 RC (11:57)
[2017-03-18] MEDS ORDERED: MAGN400O4 PO (11:58)
[2017-03-18] MEDS ORDERED: TRAZ-115 PO (11:59)
[2017-03-18] MEDS ORDERED: ACET325C PO (11:59)
[2017-03-18 12:00] VITALS: BP 142/76; PULSE 95; RESP 22; O2SAT 96
[2017-03-18] MEDS ORDERED: Alum-Mag Hydrox-Simeth 30 mL Suspension PO PRN (12:00)
[2017-03-18 12:30] VITALS: BP 126/68; PULSE 80; RESP 20; O2SAT 96
--- NOTE | 2017-03-18 12:30 | NUR ---
Evaluation completed. Please go to "Notes" then click on "Assessments and Notes" (bottom left corner of screen). Then select appropriate discipline tab on top of screen.
[2017-03-18 13:24] VITALS: BP 122/76; PULSE 65; RESP 24; O2SAT 96
[2017-03-18] MEDS ORDERED: Polyethylene Glycol (PEG) 17 Gm Powder PO PRN (14:55)
--- NOTE | 2017-03-18 14:57 | NUR ---
Arrived from ER: Patient arrived from the ER at 1330. Patient has his eyes closed ans is basically not responding when spoken to or with sternal rub or touch. Patient has his mouth open and is mouth breathing in a deep sleep. His Temp is 36.3 b/p 122/76 pulse 65 resp 24 02 sat 96% on room air. Patient has IV fluids running and per MD IV fluids will be held until lab results are available. Per ER nurse patient did receive 1 liter of NS in the ER. Patients daughters and are at bedside. Update in patients status was given to [facility] [place] where patient lives. Patient does not appear to be in any distress or pain. Mouth care was performed with oral sponges and mouth moisturizer and water. Patient is repositioned every 2 hours and for comfort.
--- NOTE | 2017-03-18 15:01 | PCM.PNMED ---
Subjective Date of Service Mar 18, 2017 Exam Vital Signs Vital Sign - Last Date Time Temp Pulse Resp B/P Pulse Ox O2 Delivery O2 Flow Rate FiO2 03/18/17 13:24 36.3 65 24 122/76 96 Room Air Lab and Diagnostics Result Diagram: 03/18/17 0935 03/18/17 0935 Raegan Lancaster DO Mar 18, 2017 15:01
--- NOTE | 2017-03-18 15:10 | PCM.HPMED ---
Subjective Date of Service Mar 18, 2017 Primary Provider: Admitting Physician: Raegan Lancaster DO Primary Care Physician: Bin Franks MD Attending Physician: Raegan Lancaster DO Admit Status: From the Emergency Department Chief Complaint: Anorexia, hyponatremia History of Present Illness: This is 76 yo male with severe dementia diagnosed whern 63, was placed in [facility] care due to repeated falls. Family says he is hallucinating and tried to orange picking supervisor things he shouldn't also have scoliosis, due to which he leans to one side and has an imbalance of gait. He was fine until last week, family has not seen him for some time. [facility] staff called today saying he is not eating. fam think he was probably accepting some po but not drinking fluids. He has no c/o nausea, vomiting, diarrhea, fevers or pain. Staff at [facility] noted that he was roaming around all night, sleeping during the day. Currently he is fast asleep, awaking only briefly, nurse says he was sitting at the edge of the bed not that long ago. [facility] staff also noted similar behavior. In the eR, CXR was done non acute, no CT because family decided not to since he had one in november. Labs showed hyponatremia at 153, 1L bolus NSS was given then D5W 100 cc/hr was started. Labs allo showed bilirubin of 1.8. VSS. Family says he was talking to them in the ED. UA was done, result pending at this time. Family has never considered peg tubes as pt was eating fine till 1-2 weeks ago. They say he has tolerated haldol ok in the past, pt did not need any psych meds at the facility Patient is admitted to blue team for anorexia and symptomatic hyponatremia likely secondary to dehydration Review of Systems: Patient cannot provide a review of systems Family no no fevers, chills, constipation, diarrhea or urological symptoms. They do think he has a sore throat and hallucinations Allergies Coded Allergies: aripiprazole (Verified Allergy, Unknown, makes him "crazy", 03/18/17) quetiapine (Verified Allergy, Unknown, makes him "crazy", 03/18/17) Home Medications The patient's medication included donepezil, nystatin, ibuprofen, ranitidine, trazodone PMH Past medical history history is remarkable for early onset enzymes dementia, frequent ground-level falls, prostate problem, obstructive sleep apnea for which patient has been noncompliant, GERD, psoriasis, osteoarthritis Surgical History None Family History Mom from heart attack Dad of unknown causes 2 brothers had cancer and one brother had multiple sclerosis Social History 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 eyes poorly reactive ( baseline has eye problems like cataracts) psych: no agitation Neck: No masses, trachea midline, no thyromegaly Lungs: CTA with normal respiratory effort, no crackles or wheezes CV: RRR, no murmurs/rubs/gallops, normal PMI Skin: Warm and dry. Psych: Drowsy Lab and Diagnostics Result Diagram: 03/18/17 0935 03/18/17 0935 Microbiology PROCEDURE: US ABDOMEN ([id number]) INDICATIONS: elevated bili IMPRESSION: 1. Limited examination. 2. Diffuse increased echogenicity within the gallbladder possibly related to sludge or gallbladder calcification. Dictated by: Lynne Hart M.D. on 03/18/2017 at 20:38 Approved by: Lynne Hart M.D. on 03/18/2017 at 20:41 PROCEDURE: X-RAY CHEST ONE VIEW, PORTABLE ([id number]) INDICATIONS: lethargy, altered mental status IMPRESSION: No acute pulmonary process. Dictated by: Lynne Hart M.D. on 03/18/2017 at 9:55 Approved by: Lynne Hart M.D. on 03/18/2017 at 9:55 Assessment & Plan #1 Anorexia: Cholelithiasis, oropharyngeal kalyn, dementia, hypernatremia related encephalopathy -- Stop D5W., stat BMP showed improved Na 152 -- check random glucose -- ABG are ordered showed no concern for CO2 retention -- Ammonia levels are normal, troponin is normal -- Keep nothing by mouth until patient is more alert and oriented -- D5 half-normal saline with potassium 20 meq ordered -- TBW: 39 Free Water deficit: 39(14/140) =3.9L -- Change in sodium per L 1/2 NSS infusate= 77/40= 1.9, can not give more than 250 cc/hr -- Consider switching back to D5W if adjustment in sodium is not achieved. -- Q3H Na checks -- Swallow evaluation -- Mycelex troches -- Discuss PEG tube placement with family if patient continues to not eat, while pursuing other options #2 is Alzheimer's Dementia chronic active -- psych consult: Left message for Dr. Dong, follow up in the a.m. -- hold po meds, patient is somnolent -- Consider MRI, patient is unable to follow commands #3 Gerd chronic active iv famotidine 20 mg twice a day #4 insomnia chronic active -- hold medication trazodone #5 anxiety chronic active -- hold home medication lorazepam #6 prostate problem chronic active -- Patient has no home medications VTE Prophylaxis: Sub-Q Enoxaparin, Sub-Q Fondaparinux Resuscitation Status: DNR/DNI:Do Not Resuscitate/Intubate Time spent 45 min Raegan Lancaster DO Mar 18, 2017 15:09
--- NOTE | 2017-03-18 15:27 | ABG ---
DateTimeAnalyzed 15:18:19 -_ pH ____7.447 - 7.350 7.450 pCO2 ___39.3__ -mmHg 35.0 45.0 pO2 ___79.9__ -mmHg 70.0 100 HCO3- ___27.1__ -mmol/L 22.0 26.0 ABE ____2.9__ -mmol/L -2.0 2.0 tHb ___14.6__ -g/dL 12.0 18.0 O2Hb ___95.3__ -% 95.0 COHb ____1.4__ -% 1.5 MetHb ____0.1__ -% 0.4 1.5 sO2 ___96.8__ -% 25.0 FIO2 ___21.0__ -% Drawn By RC - Date/Time Notified____ 15:27:00 -_ Notified By RC - Notified Whom __hawkins - K+ ____3.4__ -mmol/L tO2 ___19.7__ -Vol% Bello test _Positive -
[2017-03-18 16:08] LABS: Magnesium 2.3 mg/dL (1.6-2.6)
[2017-03-18 16:17] LABS: TROPONIN T < 0.010 ug/L (0.0-0.011)
--- NOTE | 2017-03-18 17:22 | NUR ---
LOC/Skin assessment: Patient did open his eyes at 1700 . Responded when spoken to. Greeted his . Patient has severe dementia at baseline. Patient has open area/skin tear at gluteal Cleft and a red sacral area. A Mepilex dressing was placed over area. Patient is turned side to side and bridged off of his bottom. Addendum: 03/18/17 at 1746 by ANDRES BURNS RN Patient has not been with it enough to safely take oral meds .
[2017-03-18] MEDS: Clotrimazole Troche 10 mg Tablet MT SCH ×2 (17:30→20:36)
[2017-03-18] MEDS: D5 0.45% NaCl + KCl 20 mEq/L 1,000 ML IV SCH (17:30)
[2017-03-18 20:43] VITALS: BP 129/75; PULSE 64; RESP 20; O2SAT 96
--- NOTE | 2017-03-18 20:43 | DRSVH ---
PROCEDURE: US ABDOMEN ([id number]) INDICATIONS: elevated bili TECHNIQUE: Real-time scanning was performed of the abdominal and retroperitoneal organs, with image documentatio n. COMPARISON: None. FINDINGS: Examination is limited secondary to patient body habitus and cooperative ability. Liver: Liver is normal in size and homogeneous in echotexture. Gallbladder: Gallbladder is poorly visualized with an appearance of diffuse increased echogenicity. Biliary ducts: Intrahepatic bile ducts are non-dilated. No gross balloon dilation. Normal is 6-7 mm or less in diameter, or 10 mm or less post-cholecystectomy. Pancreas: Visualized portions of the pancreas are sonographically normal. Spleen: Spleen is not visualized. Kidneys: Kidneys are normal in size and echotexture. Right kidney measures 8.7 cm long; left kidney measures 0.9 cm long. No hydronephrosis or nephrolithiasis. No solid masses. Aorta: Visualized aorta is normal in caliber at less than 3 cm. Iliacs: Proximal common iliac arteries are normal in caliber at less than 2.5 cm. IVC: Intrahepatic inferior vena cava is patent. Miscellaneous: No free abdominal fluid. IMPRESSION: 1. Limited examination. 2. Diffuse increased echogenicity within the gallbladder possibly related to sludge or gallbladder ca lcification. Dictated by: Lynne Hart M.D. on 03/18/2017 at 20:38 Approved by: Lynne Hart M.D. on 03/18/2017 at 20:41
[2017-03-19] MEDS: D5 0.45% NaCl + KCl 20 mEq/L 1,000 ML IV SCH ×2 (03:44→17:32)
[2017-03-19 04:40] VITALS: BP 130/76; PULSE 60; RESP 20; O2SAT 96
--- NOTE | 2017-03-19 04:46 | NUR ---
hematuria Pt had small amount of fresh red blood in brief when changing brief. Pt was straight cathed in ED. Will continue to monitor.
[2017-03-19] MEDS: Clotrimazole Troche 10 mg Tablet MT SCH ×5 (06:00→19:48)
--- NOTE | 2017-03-19 06:36 | NUR ---
urination Pt had 2 large, very wet brief changes. Some bright red blood in brief, 4 to 5 drops.
[2017-03-19] MEDS: Dextrose 5% 1,000 ML IV SCH (07:45)
[2017-03-19 08:20] VITALS: BP 139/84; PULSE 63; RESP 16; O2SAT 97
--- NOTE | 2017-03-19 11:39 | NUR ---
NUTRITION CONSULT ASSESS: 76YO M admit with h/o severe dementia and reports of refusal/decreased po intake x 2wks at memory care unit. MD notes indicate possible discussion with family re PEG tube, palliative care team consulted. Pt is DNR/DNI. Currently not alert to safely take medications per RN notes. ST has cleared for stim diet. PMHX: Severe dementia, GERD DIET: Stimulation. Refusal x 1 meal LABS: Alb 3.4, PAB 14, GLu 122, Na 152 MEDS: Reviewed GI: No BM WEIGHT: 64.5kg, Wt in 11/2016:74kg BMI: 23.0 Noted weight loss of 13% x 4mos. EST.NEEDS: WEIGHT GAIN (30-35kcal/kg;1.2-1.5g/kg IBW) Kcal: 1115-5467 Pro: 80-95g NUTRITION DIAGNOSIS: (1) Severe malnutrition in the context of chronic illness related to altered mental status/severe dementia with decreased po intake x 2wks as evidenced by 13% weight loss x 4months, currently refusing stimulation diet. INTERVENTION: (1) Add supplements (magic cup) as diet advances. (2) Monitor for POC/potential for PEG tube. TF recommendations as follows: Jevity 1.5 at 10ml/hr advancing 10ml q 12 hrs to goal rate of 55ml/hr with H20 flush of 55ml q 2 hrs to provide 1897kca, 81g protein, 1621ml fluid. MONITOR/EVALUATE: Nutrition needs, potential for tube feeding, labs, diet advancement per ST, overall POC. F/U per high risk.
[2017-03-19] MEDS ORDERED: 0.45% Sodium Chloride 250 ML in IV Bag 1 EACH IV ONE (12:05)
--- NOTE | 2017-03-19 13:21 | NUR ---
Social Work Note - Initial assessment Enrique Love is a 76 yr old who was admitted for hyponatremia. EMR reviewed: Pt has [facility]. His PCP is Dr Franks. No VA or LTC insurance. DPOA paperwork in EMR. No readmission score available. See attached CM initial assessment. SAW OFFBEARER met with pt's family - and daughters. Introduced D/C planning and explained SW role. SAW OFFBEARER provided D/C planning Checklist. [facility] lives at [facility] - Has lived there for the past 30 days. Prior to that he was living with his . He has advancing dementia and per Keyla Shaver RN [facility] [phone] he is full care. He has been refusing to eat and drink. He becomes agitated at times. He has a walker, but forgets/refuses to eat. He has been falling a lot at [facility]. Yesterday he became unresponsive, had not eaten in several days. Pt's family states that they know that he had dementia, that it is advancing. They would like to talk with Palliative Care about goals of care and learn more about the disease process. Pt's is familiar with hospice, but is not sure if now is the time to have hospice services. Palliative Care orders in place. Family anticipates that pt will return to [facility] - may be appropriate for hospice services. Plan: Developing - Pending Palliative care consult. TAMIKO Antoine Addendum: 03/19/17 at 1327 by MARILU ARCEO SS Amended: Links added.
--- NOTE | 2017-03-19 13:36 | NUR ---
Palliative care note D/A: Palliative care referral received today from Dr. Pagan, for assistance with goals of care. Pt is 76 yom, who was dx'ed with dementia in his early 60's. Per review of chart, it appears that he was placed only recently at facility locally, [facility] in [place]. Pt seen by speech therapy who notes that pt admitted with a reduced appetite and reduced intake. He is noted to frequently fall and suffers from severe confusion as well as a weak swallow. Spouse is Calista Love at [phone]. Pt has two daughters listed, Hodan Hoyt at [phone] and Valerie (last name unknown) at [phone]. P: Palliative care to follow. Mayelin MORRISON, CCM
--- NOTE | 2017-03-19 14:40 | CONS ---
[address] [address] CONSULTATION REPORT PATIENT: MARIAM OGLESBY : 1940 MR#: [id number] ADMIT: 03/18/2017 JOB ID: [id number] DATE OF SERVICE: 03/19/2017 IDENTIFICATION: The patient is a 76-year-old, white male, to his for over 50 years. His is his main caregiver. He has been suffering with progressive Alzheimer's for 10 years and is currently in an Alzheimer unit, "[facility]" assisted care in [place]. He has three children and 10 grandchildren. REASON FOR ADMISSION: Client to the emergency department via EMS from the assisted care unit, [facility], for agitation, being a fall risk, and unable to the eat. HISTORY OF PRESENT ILLNESS: I was consulted today by the internal medicine service regarding the patient. He presents with encephalopathy related to hypernatremia as well as anorexia, insomnia, anxiety, and a progressive Alzheimer's disorder for the past 10 years. The Alzheimer's has been present for 10 years and it is present of a rather severe intensity. Client is essentially nonverbal and was unable to follow even simple commands. Although he has been struggling with progressive decline in memory and functioning since being placed in the Alzheimer unit in February 2017, he has essentially not been eating for four weeks, appears increasingly weak and lethargic and increasingly incoherent in speech. I reviewed his course and records kept by [facility]. I had a family session and gathered history from his , his two children, and Keyla, a vocational case manager from [facility] assisted care. They state all the above symptoms got worse when he was taken out of the home. They stated the most important thing to him is his family, his home, and his dog. It appears that he is not responding well to the change in environment. The vocational case manager from [facility] stated he could not settle down, could not sit or lay down, and as a result, would end up falling. They have tried courses of Abilify and Seroquel which only produced more confusion and agitation. They tried a course of donepezil and have noticed no significant improvement in cognitive function or communication. At present, he is presenting with signs of extreme cognitive deficits. His coping skills are overwhelmed and his judgment and insight are both severely impaired. Client could not participate in review of systems questions for psychiatric or physical review of systems. MEDICATIONS: 1. Aspirin. 2. Donepezil 10 daily. 3. Ibuprofen. 4. Ranitidine. 5. Trazodone 25 h.s. ALLERGIES: 1. ABILIFY. 2. SEROQUEL. ILLNESSES: Alzheimer's, gastroesophageal reflux disease, cholelithiasis, oral Alejandrina, hypernatremia. FAMILY MEDICAL HISTORY: Noncontributory. PAST PSYCHIATRIC HISTORY: None. PSYCHOSOCIAL HISTORY: Client was born in [place], [place]. 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 He does not have a history of trauma nor drug and alcohol use. He does not have a history of psychiatric disorders, depression or previous suicide attempt. ins 1964 and is currently to his , for the past 51 years. BAPTISM: Devout Yazdanism. They attend [employer] in [place]. LEGAL HISTORY: None. PHYSICAL EXAMINATION: Vital signs within normal limits. LABORATORY: CBC normal. Electrolytes positive for sodium at 152. MENTAL STATUS: Client in bed, appearing frail, with poor eye contact. His behavior was lethargic, attitude aloof and detached. Speech: Mute. Thought process: Client unable to relate a coherent history. Thought content not applicable. Insight and judgment severely impaired. Impulse control: Unable to delay impulses of fear. Competence to handle current stressors: Is currently being overwhelmed. IMPRESSION: The patient is a 76-year-old, white male, who comes in with a devoted family who have been caring for him and helping him through Alzheimer's for the past 10 years. They state there has been a progressive decline in cognitive functioning, physical weakness and speech over the past four weeks. He was placed in the [facility] assisted care in February 2017. Client has been tried on trials of trazodone, Abilify, Seroquel, and anti-Alzheimer's medications. The family reports little to no benefit with these medications and significant side effects. They asked for DO NOT RESUSCITATE and DO NOT INTUBATE and are hoping for palliative care to make their father's life more comfortable. DIAGNOSIS: [place] I. Dementia, Alzheimer's. [place] II. Defer. [place] III. Encephalopathy, anorexia, gastroesophageal reflux disease, cholelithiasis, oral Alejandrina, Hypernatremia. [place] IV. Severe, moving to assisted residential. [place] V. Current Global Assessment of Functioning equal to 20. PLAN: Would recommend continuing low-dose trazodone at night 25 mg h.s. Could consider changing to Remeron 7.5 mg h.s. to minimize side effects of trazodone. I would refrain from neuroleptics such as Abilify, Seroquel, or Haldol, given client's fragile state and bad reactions to relatively low doses of Abilify and Seroquel. Would encourage family and staff to move more towards palliative care. Would continue the donepezil for the time being. Thank you for a very interesting consult. I truly enjoyed meeting with the family and the patient.
[2017-03-19 15:44] VITALS: BP 130/75; PULSE 68; RESP 18; O2SAT 98
--- NOTE | 2017-03-19 16:21 | PCM.PNMED ---
Subjective Date of Service Mar 19, 2017 Subjective Patient remains minimally responsive to verbal stimuli, breathing is labored. He demonstrates some evidence of mild distress occasional wincing with motion but does not appear in significant pain at least. She comes in by family at bedside who confirm that his comfort is paramount but would like to consider some interventions if possible to provide him some improved duration and quality of life. Exam Vital Signs Vital Sign - Last Date Time Temp Pulse Resp B/P Pulse Ox O2 Delivery O2 Flow Rate FiO2 03/19/17 15:44 37.0 68 18 130/75 98 Room Air Intake and Output 03/18/17 03/18/17 03/19/17 Cumulative From/Thru 15:00 23:00 07:00 03/18/17 09:45 - 03/19/17 06:03 Intake Total 2000 ml 0 ml 0 ml 2000 ml Balance 2000 ml 0 ml 0 ml 2000 ml Intake Oral 0 ml 0 ml 0 ml IV Total 2000 ml 2000 ml # Voids 1 2 3 General: Moderate Distress, Other (patient is lying bed is closed mouth open breathing is mildly labored. He is not immediately responsive to verbal stimuli occasionally appears to gesture and motion at one time opens his eyes during our exam briefly appears to look about some intention but still unable to answer any questions directly. ) Mouth: Mucous Membranes Dry Chest & Lungs: Clear to auscultation & percussion Cardiovascular: Regular Rate/Rhythm Skin: Other (significant tenting of skin, report turgor) IVs and Medications Medications Reviewed: Medications were reviewed in detail Lab and Diagnostics Result Diagram: 03/18/17 0935 03/19/17 0605 Microbiology PROCEDURE: US ABDOMEN ([id number]) INDICATIONS: elevated bili IMPRESSION: 1. Limited examination. 2. Diffuse increased echogenicity within the gallbladder possibly related to sludge or gallbladder calcification. Dictated by: Lynne Hart M.D. on 03/18/2017 at 20:38 Approved by: Lynne Hart M.D. on 03/18/2017 at 20:41 PROCEDURE: X-RAY CHEST ONE VIEW, PORTABLE ([id number]) INDICATIONS: lethargy, altered mental status IMPRESSION: No acute pulmonary process. Dictated by: Lynne Hart M.D. on 03/18/2017 at 9:55 Approved by: Lynne Hart M.D. on 03/18/2017 at 9:55 Assessment & Plan #1 Anorexia: Cholelithiasis, oropharyngeal kalyn, dementia, hypernatremia related encephalopathy -- Stop D5W., We will continue with D5 half-normal saline at 100 mL per hour at this time, continue poor urine output. -- check random glucose -- ABG are ordered showed no concern for CO2 retention -- Ammonia levels are normal, troponin is normal -- Keep nothing by mouth until patient is more alert and oriented -- TBW: 39 Free Water deficit: 39(14/140) =3.9L -- Change in sodium per L 1/2 NSS infusate= 77/40= 1.9, can not give more than 250 cc/hr -- Consider switching back to D5W if adjustment in sodium is not achieved. -- Swallow evaluation pending improved mentation -- Mycelex layla -- Discuss PEG tube placement with family if patient continues to not eat, while pursuing other options, has care has been consulted to discuss this further. #2 is Alzheimer's Dementia chronic active -- psych consulted, recommending limiting neuroleptics when possible to prevent further sedation. Given patient's nonresponsive status appears much more they were able to contribute. Agree with plan for positive consultation. -- hold po meds, patient is somnolent s #3 Gerd chronic active iv famotidine 20 mg twice a day #4 insomnia chronic active -- hold medication trazodone #5 anxiety chronic active -- hold home medication lorazepam #6 prostate problem chronic active -- Patient has no home medications Pain Evaluation: Adequate Pain Control VTE Prophylaxis: Sub-Q Enoxaparin, Sub-Q Fondaparinux Resuscitation Status: DNR/DNI:Do Not Resuscitate/Intubate Time spent 35 minutes Cornelio Pagan DO Mar 19, 2017 16:21
--- NOTE | 2017-03-19 16:29 | NUR ---
Somnolence/output Pt. very somnolent all day today, opening eyes occasionally but not speaking or following commands. Frequent oral care and skin care. Pt. has been voiding every two hours moderate amounts of brownish/red tinged urine.
[2017-03-19 21:36] VITALS: BP 117/73; PULSE 71; RESP 18; O2SAT 96
[2017-03-20 00:31] VITALS: BP 113/65; PULSE 58; RESP 18; O2SAT 95
[2017-03-20] MEDS: D5 0.45% NaCl + KCl 20 mEq/L 1,000 ML IV SCH ×3 (03:08→14:56)
--- NOTE | 2017-03-20 03:41 | NUR ---
activity Pt more alert with family in room, smiling and watching everyone. Daughter came for the night. Pt more cooperative with cares.
[2017-03-20 04:39] VITALS: BP 152/84; PULSE 64; RESP 20; O2SAT 95
--- NOTE | 2017-03-20 04:53 | NUR ---
Urine Pt has brown urine in briefs, no noted pain, s/s of discomfort. Will monitor.
[2017-03-20] MEDS: Clotrimazole Troche 10 mg Tablet MT SCH ×2 (06:00→10:00)
[2017-03-20 06:06] LABS: BASOPHILS % (AUTO) 0.2 % (0-3); EOSINOPHILS % (AUTO) 2.7 % (0-5); MONOCYTES % (AUTO) 8.6 % (4-12); Mean Corpuscular Hemoglobin 32.2 pg (27.0-35.0); Mean Corpuscular Volume 88.7 fL (81-100); NEUTROPHILS % (AUTO) 66.1 % (40-74); Platelet Count 137 bil/L (150-400)
[2017-03-20 09:59] VITALS: BP 139/72; PULSE 57; RESP 18; O2SAT 98
--- NOTE | 2017-03-20 10:55 | NUR ---
Palliative care note D/A: Case discussed in dc planning rounds today. PC to plan for family meeting regarding prognosis and goals of care. Family has inquired about feeding tube/PEG. Spouse has expressed that she may feel as though she is ending his life should care be withheld. Medical team reflects that family may need direction and support. Pt currently not taking orals. Family wonders if they might want to bring pt in for fluids each time he decompensates. Met with spouse in pt room. Provided PC brochure and card. Arranged for 2:00 FCTM for today. Spouse indicates that they have family coming up today from [place] and it is anticipated that they will arrive in time for 2:00 mtg. Msg left for amelia Zamorano. Dr. Herrera aware. Have also called and left message for Chaplain Noel about family possibly benefitting from visit. Mayelin MORRISON dcp
--- NOTE | 2017-03-20 11:37 | NUR ---
MYA signed by daughter.
[2017-03-20] MEDS: Nystatin 100,000 Unit/mL 5 mL Suspension PO SCH ×2 (14:01→18:13)
--- NOTE | 2017-03-20 15:04 | NUR ---
spiritual care: palliative care referral conversational visit with family. family coping, preparing for palliative conf and processing medical/prognosis. Pt goes by "Gene" family explained history of nickname. Brother, kassandra, and dtrs in room. granddtr expected on sunday.
[2017-03-20] MEDS ORDERED: Fluconazole Inj 200 MG in IV Premix 1 EACH IV ONE (15:20)
--- NOTE | 2017-03-20 15:31 | PCM.CONPAL ---
Date of Service Mar 20, 2017 Date of Hospital Admission: Mar 18, 2017 at 12:37 Date of Palliative Consult: Mar 20, 2017 Requesting Provider: Cornelio Pagan DO Reason Palliative Care Consult: Other Symptoms, Advance Care Planning, Goals of Care Discussion, Hospice Referral & Discussion Hospital Unit @time of consult: Medical/Pediatric Care Palliative Care Recommendation Summary of palliative recommendations: -Symptom management (Pain/other) EOL- reviewed progression of dementia and that even though he cannot express himself verbally he can refuse food and fluid and that can be respected. Reviewed expected processes EOL. She is will to accept that he is probably at this point. Literature given. His and daughters are all in agreement that goal at this time is for comfort. They agree with IV hydration at this time but understand that if he refuses food and fluids that repeated hospitalization or more aggressive treatments like feeding tube would not likely be to his benefit and would only prolong his dying process Oral Candidiasis- will treat with dose of fluconazole for comfort and to minimize the impact of this on his taking of food and fluid -DPOA/Advanced Directives/POLST-DPOAHC and POLST completed as per Calista- his . Has POLST but should be redone at discharge to reflect goal to change to comfort. for now will continue with limited interventions to include IV fluids. -Family/emotional support-large presence of family in room. Family support is strong. -Spiritual support-Has seen the lens grinder rough and feel very well supported in this process. Additional Medical Diagnoses with primary management by Hospitalist team include : Hypernatremia dehydration-IV fluids. High risk for falls if he awakens. Problems: End of Life Preferences DNR/DNI with goal for comfort care when discharged from hospital Goals of Care Comfort with hopes for hospice involvement for support at [facility]. Finances are an issue. One daughter is working on this. Disposition Probably back to [facility] with hospice support. Info visit tomorrow. Resuscitation Status Resuscitation Status: DNR/DNI:Do Not Resuscitate/Intubate POLST Updates/Changes Previous POLST?: Yes POLST Discussed with: Spouse/Other . Advanced Care Planning Address: Comfort care Pt History History of Present Illness PALLIATIVE CARE CONSULTATION REQUESTING-Dr. Tico Pagan REASON-goals of care, advanced care planning and sx management PCP Dr. Dominick Franks Hx taken from his chart review and interview with his Calista and his 3 daughters-Valerie, Hodan and Isabel 76 yo patient with hx of progressive dementia thought to be Alzheimer's with onset age 63 who had been at home under the care of his until February when he was placed in [facility]. He had been walking but with frequent falls, variable food intake but 6 weeks ago ate a hamburger etc.He had been hospitalized in November for weakness, multiple falls and did a bit better with some IV hydration otherwise has avoided hospitalizations. Over the last 6 weeks he has had a decline in his PO intake-sometimes refusing meals even when still at home but worse at [facility]. He has become incont of stool/urine- part of which is just not recognizing when he should go. He was admitted with dehydration, oral kalyn infection and has been treated with IV hydration. He strikes out at nursing trying to treat with oral nystatin and any attempt to feed him ice cream or water. He spit out his pills given. He has had day night switch for sometime-predating his move to [facility]. Until recently he was able to mostly dress himself and feed himself-but not in 6 weeks. He has had many falls over the past 6 months and he has become fairly nonverbal except occasional anger outburst. He seemed to become more agitated with antipsychotics and seemed to have no response to aricept or namenda. He has liked to walk including outside and had been doing that until this week at [facility]. 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 ROS otherwise difficult to assess due to the severity of his dementia Palliative Performance Scale PPS Patient Status: Baseline PPS Ambulation: Reduced PPS Self-Care: Considerable assistance required PPS Intake: Normal or reduced PPS Conscious Level: Full or drowsey, +/- confusion Performance Scale: 60% Medications Current Medications: Current Medications Clotrimazole 10 mg 10 mg 5XD MT; Start 03/18/17 at 18:00; Stop 03/20/17 at 10:43 ; Status DC Potassium Chloride/Dextrose/ Sod Cl 1,000 ml @ 100 mls/hr Q10H IV Last administered on 03/20/17 14:56; Admin Dose 100 MLS/HR; Start 03/18/17 at 16:20 Morphine Sulfate 0.5-2 mg as needed for pain Q4H PRN IVPUSH; Start 03/19/17 at 12:00 Nystatin 500,000 unit PCHS PO Last administered on 03/20/17 14:01; Admin Dose 500,000 UNIT; Start 03/20/17 at 13:00 Scheduled Aspirin (Aspirin) 81 Mg Tablet 81 MG PO DAILY Donepezil (Donepezil) 10 Mg Tablet 10 MG PO HS Ibuprofen (Ibuprofen) 800 Mg Tablet 800 MG PO DAILY Ranitidine (Ranitidine) 150 Mg Capsule 150 MG PO BID Trazodone (Trazodone) 50 Mg Tablet 25 MG PO HS Scheduled PRN Acetaminophen (Acetaminophen) 325 Mg Capsule 650 MG PO Q4H PRN PRN For Pain Bisacodyl (Dulcolax Rectal) 10 Mg Supp.rect 10 MG RC DAILY PRN PRN For Constipation Lorazepam (Lorazepam) 0.5 Mg Tablet 0.5 MG PO BID PRN PRN For Anxiety Magnesium Hydroxide (Milk of Magnesia) 400 Mg/5 Ml Oral.susp 30 ML PO DAILY PRN PRN For Constipation Objective Findings Exam Vital Sign - Last Date Time Temp Pulse Resp B/P Pulse Ox O2 Delivery O2 Flow Rate FiO2 03/20/17 09:59 36.4 57 18 139/72 98 Room Air Intake and Output 03/19/17 03/19/17 03/20/17 Cumulative From/Thru 15:00 23:00 07:00 03/18/17 09:45 - 03/20/17 06:05 Intake Total 1191 ml 1117 ml 4308 ml Balance 1191 ml 1117 ml 4308 ml Intake Oral 0 ml 0 ml 0 ml IV Total 1191 ml 1117 ml 4308 ml # Voids 5 3 11 General: Minimally responsive, Agitated (when awakened) HEENT: Oral Thrush Present, Mucous Membranes Dry Heart: Regular Rate/Rhythm Abdomen: Soft Lab/Diagnostics Lab and Imaging results reviewed in detail in EMR. Na 152, normal CR, albumin 3.2 on adm now 2.9 benign CBC Patient/Family Conference Members Present Family Members Present - Calista, 3 daughters- Hodan Padilla Sandy Medical Team Members Present? Claire العراقي PC, Mayelin Springer ASSISTANT PRINTER FLOOR COVERING PC Discussion/Goals of Care Discussion FAMILY UNDERSTANDING OF DISEASE: Family has fair grasp of issue. 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 Still questions re time course, concern for sense of thirst or hunger etc. Fear on part of his regarding if not giving IV fluids or feeding tube would equate to "killing" him. She recognizes decline and does not think it likely he will last more than a couple of months but wants to support him and support him in his Latter Day hailey. She and family have a number of ? re and dying process- what to expect etc. DISEASE PROGRESSION/EVIDENCE OF DECLINE: They accept his decline being part of the decline of his dementia process and not being reversible SYMPTOM BURDEN: GOALS: His wants him to be comfortable HOPES/WORRIES: His has spoken with the frontend engineer who supported her in treating him with appropriate supports but also allowing him to a natural -ie not with aggressive intervention. She is worried about where that line is. Time spent Total time 50 minutes; >50% face to face with patient and/or family, providing counselling regarding plans and recommendations, and in care coordination with his/her medical teams. Majority of time spent in review of EOL issues and reviewing GOC, establishing plan of care and review with team. I also spent an additional 30 minutes counseling for advanced care planning with the patient/the patients family/the surrogate decision maker. copies to: Bin Franks MD, Deborah A MD Mar 20, 2017 15:31
--- NOTE | 2017-03-20 15:39 | NUR ---
Palliative care note [facility] D/A: Met with pt spouse and her three daughters. They are Hodan Hoyt ANDRES ), Valerie ([phone]) and Isabel ). Discussed at length pt current condition and the progression of his dementia. Pt currently at [facility], spouse is finding it to be a financial burden. Dtr Hodan is working on a reverse mortgage and family had initially thought that they would need this for 18 months and then pt would qualify for Medicaid and would accept as payment. Family learns today that quite possibly, pt decline in eating and drinking, as well as his increased weakness and increased agitation, may be partly related to his new placement at but also part of his decline. Family feels that he has had a rapid decline in last month but per questioning, may have been in decline for a few months. He has been incontinent of stool and urine and family feels that he no longer is recognizing food as being food. They would like hospice info visit. They are presented with hospice choice document and pick [facility]. Dr. Herrera kindly agrees to write order. They indicate that tomorrow would work for them, at anytime. Phone call to Janel at [facility] who is able to arrange for 1045 [facility] info visit for 03/21/17. This worker has left message for dtr Valerie who is designated communication lead and have also informed sister Isabel in person. Informed amelia Zamorano of [facility] appt time. Dr. Herrera aware of [facility] appt. She will make recommendations for treating pt thrush. Discuss and dispel concerns that hospice uses medications to cause and also discuss spouse concerns that plan is not to cause in pt but rather to recognize his body is no longer interested in food and to keep him comfortable. She indicates she is ready for him to go. She also indicates that she is not used to being asked questions and her opinion about medical care and rather wishes for the days when the doctor would make the decision for you. P: Palliative care to follow. Mayelin MORRISON, [facility]
--- NOTE | 2017-03-20 16:08 | NUR ---
Social work Note - RESIDENTIAL LEASING AGENT received update from Hospice that they have scheduled Hospice info meeting 03/20 at 10:45 with family. TAMIKO Antoine
--- NOTE | 2017-03-20 17:05 | PCM.PNMED ---
Subjective Date of Service Mar 20, 2017 Subjective Patient demonstrating no significant changes overnight aside from perhaps very slight improvement in cognition and remains essentially nonresponsive. Appear in any overt discomfort during my evaluation. Breathing continues to be labor with mouth generally held open. Exam Vital Signs Vital Sign - Last Date Time Temp Pulse Resp B/P Pulse Ox O2 Delivery O2 Flow Rate FiO2 03/20/17 09:59 36.4 57 18 139/72 98 Room Air Intake and Output 03/19/17 03/19/17 03/20/17 Cumulative From/Thru 15:00 23:00 07:00 03/18/17 09:45 - 03/20/17 06:05 Intake Total 1191 ml 1117 ml 4308 ml Balance 1191 ml 1117 ml 4308 ml Intake Oral 0 ml 0 ml 0 ml IV Total 1191 ml 1117 ml 4308 ml # Voids 5 3 11 Exam General: Mild - Moderate Distress, Patient is lying bed is closed mouth open breathing is mildly labored. He is not immediately responsive to verbal stimuli occasionally appears to gesture and motion at one time opens his eyes during our exam briefly appears to look about some intention but still unable to answer any questions directly. Mouth: Mucous Membranes Dry Chest & Lungs: Clear to auscultation & percussion Cardiovascular: Regular Rate/Rhythm Skin: Ssignificant tenting of skin, milid improvement from 1 day prior, poor turgor IVs and Medications Medications Reviewed: Medications were reviewed in detail Lab and Diagnostics Result Diagram: 03/20/17 0550 03/20/17 0550 Microbiology PROCEDURE: US ABDOMEN ([id number]) INDICATIONS: elevated bili IMPRESSION: 1. Limited examination. 2. Diffuse increased echogenicity within the gallbladder possibly related to sludge or gallbladder calcification. Dictated by: Lynne Hart M.D. on 03/18/2017 at 20:38 Approved by: Lynne Hart M.D. on 03/18/2017 at 20:41 PROCEDURE: X-RAY CHEST ONE VIEW, PORTABLE ([id number]) INDICATIONS: lethargy, altered mental status IMPRESSION: No acute pulmonary process. Dictated by: Lynne Hart M.D. on 03/18/2017 at 9:55 Approved by: Lynne Hart M.D. on 03/18/2017 at 9:55 Assessment & Plan #1 Anorexia: Cholelithiasis, oropharyngeal kalyn, dementia, hypernatremia related encephalopathy -- Stop D5W., We will continue with D5 half-normal saline at 100 mL per hour at this time, continue to monitor urine output. -- ABG are ordered showed no concern for CO2 retention -- Ammonia levels are normal, troponin is normal -- Keep nothing by mouth until patient is more alert and oriented -- TBW: 39 Free Water deficit: 39(14/140) =3.9L -- Change in sodium per L 1/2 NSS infusate= 77/40= 1.9, can not give more than 250 cc/hr -- Consider switching back to D5W if adjustment in sodium is not achieved. -- Swallow evaluation pending improved mentation, again deferred today due to poor mentation. -- Mycelex troches discontinued with 1 time dose of fluconazone provided in place on recommendations of paliative care. -- Palliative care consulted and an extensive conversation with patient earlier today . They did Discuss PEG tube placement in addition to other possible interventions to prolong life which family began to recognize was not in accordance with patient's wishes and did not appear to promise and extension of quality of life . As such patient is receptive to meeting with hospice tomorrow , and will consider further a full transition to comfort measures . - In the meantime again in accordance with family wishes , we will continue supportive care and intravenous hydration to allow patient to achieve at least some degree of medical stability prior to consideration of discharge to hospice care . - We will continue to closely assess patient's cognitive functioning , and minimize discomfort wherever possible . #2 is Alzheimer's Dementia chronic active -- psych consulted, recommending limiting neuroleptics when possible to prevent further sedation. Given patient's nonresponsive status appears much more they were able to contribute. -- hold po meds, patient is somnolent #3 Gerd chronic active iv famotidine 20 mg twice a day #4 insomnia chronic active -- hold medication trazodone #5 anxiety chronic active -- hold home medication lorazepam #6 prostate problem chronic active -- Patient has no home medications Pain Evaluation: Adequate Pain Control VTE Prophylaxis: Sub-Q Enoxaparin, Sub-Q Fondaparinux Resuscitation Status: DNR/DNI:Do Not Resuscitate/Intubate Time spent 35 minutes Cornelio Pagan DO Mar 20, 2017 17:05
[2017-03-20 17:15] VITALS: BP 128/84; PULSE 67; RESP 18; O2SAT 95
--- NOTE | 2017-03-20 17:56 | NUR ---
Activity Pt resting in bed this shift, mostly drowsy, appeared comfortable to this RN and family. Once sat up on own for several minutes, returned to supine position on own. Calm and cooperative this shift, with one attempt to hit RN during oral care. Turned q2h.
[2017-03-20 20:14] VITALS: BP 138/79; PULSE 64; RESP 18; O2SAT 96
[2017-03-21] MEDS: Nystatin 100,000 Unit/mL 5 mL Suspension PO SCH ×5 (00:37→22:07)
[2017-03-21] MEDS: D5 0.45% NaCl + KCl 20 mEq/L 1,000 ML IV SCH ×3 (00:42→21:31)
--- NOTE | 2017-03-21 01:12 | NUR ---
Activity Pt rested through the night with eyes closed. No s/sx of pain or discomfort. Q 2 turns. Family at bedside. Cooperative with care during this shift. Call light within reach.
[2017-03-21 04:34] VITALS: BP 164/93; PULSE 61; RESP 18; O2SAT 97
[2017-03-21 07:46] LABS: BASOPHILS % (AUTO) 0.2 % (0-3); EOSINOPHILS % (AUTO) 3.2 % (0-5); MONOCYTES % (AUTO) 9.8 % (4-12); Mean Corpuscular Hemoglobin 31.8 pg (27.0-35.0); Mean Corpuscular Volume 90.1 fL (81-100); NEUTROPHILS % (AUTO) 61.6 % (40-74); Platelet Count 127 bil/L (150-400)
--- NOTE | 2017-03-21 10:47 | PCM.PALLBR ---
Palliative Care Recommendation Summary of palliative recommendations: 03/21Hospice Info Visit: completed this morning. Family did not sign on with hospice as they are hoping he will eat and drink more on his own after his kalyn infection is fully treated. Plan for now is to continue with limited interventions to include IV fluids and therapy for yeast infection. 03/20 EOL Counseling: Dr. Herrera reviewed progression of dementia with patient' s family, and pointed out that even though he cannot express himself verbally, he can refuse food and fluid and that can be respected by family. Reviewed expected processes EOL. is willing to accept that he is probably at EOL. Literature given. His and daughters are all in agreement that goal at this time is comfort. They agree with IV hydration at this time but now understand that if he refuses food and fluids that repeated hospitalization or more aggressive treatments like feeding tube would not likely be to his benefit and would only prolong his dying process Symptom management (Pain/other): Oral Candidiasis- will treat with dose of fluconazole for comfort and to minimize the impact of this on his taking of food and fluid Advanced Directives/DPOAHC and POLST: 1. DPOAHC is his Calista [phone]. 2. POLST currently states DNR/DNI/limited. Plan for now is that it appears family is NOT ready to transition to comfort care. Thus, [facility] does not anticipate any change in POLST order. Family/emotional support: there is a large presence of family in room. Family support is strong. Primary contacts are his Calista and his 3 daughters: Valerie ([phone]) , Hodan ([phone]) and Isaebl Spiritual support: "Staunch" Catholics. telegraph editor has seen him this admission, and feels he is very well supported in this process. Palliative Care will sign off case as family goals have been clarified and no changes in current POLST to be done. Discussed with Dr. Pagan. Problems: End of Life Preferences DNR/DNI with goal for comfort care when discharged from hospital Goals of Care Comfort with hopes for hospice involvement for support at [facility]. Finances are an issue. One daughter is working on this. Disposition Probably back to [facility] with hospice support. Info visit tomorrow. Resuscitation Status Resuscitation Status: DNR/DNI:Do Not Resuscitate/Intubate POLST Updates/Changes Previous POLST?: Yes POLST Discussed with: Spouse/Other Total time 35 minutes; >50% face to face with patient and/or family, providing counselling regarding plans and recommendations, and in care coordination with his/her medical teams. Palliative Brief Note Date of Service Mar 21, 2017 . Patient Identification: Mr. Love is a 76 yo WMM with hx of progressive dementia thought to be Alzheimer's with onset age 63 who had been at home under the care of his until February 2017 when he was placed in [facility]. He had been walking but with frequent falls, variable food intake.He had been hospitalized in November for weakness, multiple falls and tended to improve somewhat after IV hydration. Hospital Course: He was admitted 03/18 with dehydration, oral kalyn infection and has been treated with IV hydration. He strikes out at nursing when they try to treat him with oral nystatin and with any attempt to feed him ice cream or water. He spits out some of his pills. RN reports he has been pocketing food today. Functional Baseline: His family reports that he has had day/night confusion for some time, predating his move to [facility] last month. Up until 6 weeks ago, he was able to mostly dress himself and feed himself. He has had many falls over the past 6 months and he has become fairly nonverbal except an occasional anger outburst. He seemed to get more agitated with antipsychotics and seemed to have no response to aricept or namenda. He has liked to walk including outside and had been doing that until this past week at [facility]. Over the last 6 weeks he has had a decline in his PO intake in that he sometimes refused meals even when still at home but this got worse at [facility]. He has become incontinent of stool/urine, part of which is just not recognizing when he needed to use bathroom. Exam: General: pt is somnolent but opens eyes and mumbles with tactile/verbal attempts at arousal. HEENT: normocephalic with denominational wasting, atraumatic. Pupils pinpoint. unable to follow commands for EOM testing. no gross lesions ears, nose. +thrush at edges and posterior of tongue. Unable to get pt to open mouth wide enough to view pharynx. Mucus membranes of mouth are moist. Lungs: clear, decreased breath sounds Cor: S1, S2, rrr. Abdomen: soft Ext: no edema Aminta Trinidad MD Mar 21, 2017 10:47 Aminta Trinidad MD Mar 21, 2017 10:47
--- NOTE | 2017-03-21 11:09 | NUR ---
NUTRITION FOLLOW-UP: ASSESS: 76 YO male admitted with h/o severe dementia and reports of refusal/decreased PO intake x 2 wks at memory care unit. Per family conference facilitated by Palliative team today, family has come to realize that the patient is at the end of his life. Hospice Informational Visit scheduled, with intent of returning to [facility] with hospice for comfort care. Until discharge, IV hydration will continue, as will stimulation diet with honey thick liquids, although pt. is not taking PO at this time. PMHX: Severe dementia, GERD DIET: Stimulation, honey thick liquids. PO intake 0%. LABS: Na 146, Chloride 111, Cr 0.60, Glu 107, Ca 8.4. MEDS: Reviewed GI: Documentation confusing; I&O screen reports no BM, other screens note diarrhea. WEIGHT: 64.5 kg, Wt in 11/2016:74kg BMI: 23.0 Noted weight loss of 13% x 4 mos. EST.NEEDS: WEIGHT GAIN (30-35kcal/kg;1.2-1.5g/kg IBW) Kcal: 4534-7949 Pro: 80-95g NUTRITION DIAGNOSIS: (1) Severe malnutrition in the context of chronic illness related to altered mental status/severe dementia with decreased PO intake x 2wks as evidenced by 13% weight loss x 4 months, currently refusing stimulation diet - PERSISTS. INTERVENTION: (1) Add supplements (magic cup) as diet advances. (2) At this time, PEG tube is not an option. In the event family reconsiders, PEG tube feeding recommendation follows. Initiate Jevity 1.5 at 10ml/hr advancing 10ml q 12 hrs to goal rate of 55ml/hr with H20 flush of 55ml q 2 hrs to provide 1897kca, 81g protein, 1621ml fluid. MONITOR/EVALUATE: Nutrition needs, goals of care, labs, diet advancement per ST, overall POC. F/U per high risk.
--- NOTE | 2017-03-21 12:52 | NUR ---
Palliative care note D/A: Pt family seen this am by Tara from [facility] for info visit. Spouse focused on need for fluids and did not wish to sign consents at this time. She indicates that pt is on treatment for his thrush and wishes to see how he does when condition is gone or decreased. Dtr's appear to understand that pt is at eol and that thrush treatment may not impact his decline. Plan remains for him to return to [facility]. Msg left for [facility] SALES UTILITY REPRESENTATIVE. Dr. Trinidad later notes that family is clear on goals at this time, not wishing for hospice right yet. Palliative care to sign off. Mayelin MORRISON, [facility]
--- NOTE | 2017-03-21 12:59 | NUR ---
spiritual care: follow up Visited with family who is gathered at pt's bedside. Pt was non-communicative throughout the visit. Pt's family was grateful for spiritual care and asked for a visit from the [facility] director of research. Put the family on the list for a visit and blessed them. Spiritual care will continue to follow as needed.
--- NOTE | 2017-03-21 16:04 | PCM.PNMED ---
Subjective Date of Service Mar 21, 2017 Subjective Mentation still significantly impaired,d however appears slightly improved from previous as per my evaluation and family. No evidence of acute distress. Still relatively unresponsive, not verbally communicating. Exam Vital Signs Vital Sign - Last Date Time Temp Pulse Resp B/P Pulse Ox O2 Delivery O2 Flow Rate FiO2 03/21/17 04:34 36.2 61 18 164/93 97 Room Air Intake and Output 03/20/17 03/20/17 03/21/17 Cumulative From/Thru 15:00 23:00 07:00 03/18/17 09:45 - 03/21/17 06:15 Intake Total 1447 ml 1159 ml 6914 ml Balance 1447 ml 1159 ml 6914 ml Intake Oral 0 ml 0 ml IV Total 1447 ml 1159 ml 6914 ml # Voids 3 14 Exam General: Mild Distress, Patient is lying bed, mouth slightly open breathing is less labored than 1 day previous. He is not immediately responsive to verbal stimuli occasionally appears to gesture and motion. Low level of alertness apparent. Mouth: Mucous Membranes Dry, improving oral thrush. Chest & Lungs: Clear to auscultation & percussion Cardiovascular: Regular Rate/Rhythm Skin: Ssignificant tenting of skin, poor turgor IVs and Medications Medications Reviewed: Medications were reviewed in detail Lab and Diagnostics Result Diagram: 03/21/1772403/21/17724 Microbiology PROCEDURE: US ABDOMEN ([id number]) INDICATIONS: elevated bili IMPRESSION: 1. Limited examination. 2. Diffuse increased echogenicity within the gallbladder possibly related to sludge or gallbladder calcification. Dictated by: Lynne Hart M.D. on 03/18/2017 at 20:38 Approved by: Lynne Hart M.D. on 03/18/2017 at 20:41 PROCEDURE: X-RAY CHEST ONE VIEW, PORTABLE ([id number]) INDICATIONS: lethargy, altered mental status IMPRESSION: No acute pulmonary process. Dictated by: Lynne Hart M.D. on 03/18/2017 at 9:55 Approved by: Lynne Hart M.D. on 03/18/2017 at 9:55 Assessment & Plan #1 Anorexia: Cholelithiasis, oropharyngeal kalyn, dementia, hypernatremia related encephalopathy -- Stop D5W., We will continue with D5 half-normal saline at 100 mL per hour at this time, continue to monitor urine output. -- ABG are ordered showed no concern for CO2 retention -- Ammonia levels are normal, troponin is normal -- Keep nothing by mouth until patient is more alert and oriented -- TBW: 39 Free Water deficit: 39(14/140) =3.9L -- Change in sodium per L 1/2 NSS infusate= 77/40= 1.9, can not give more than 250 cc/hr -- Consider switching back to D5W if adjustment in sodium is not achieved. -- Swallow evaluation pending improved mentation, again deferred today due to poor mentation. -- Mycelex troches discontinued with 1 time dose of fluconazone provided in place on recommendations of paliative care. -- Palliative care consulted and an extensive conversation with patient earlier today . They did Discuss PEG tube placement in addition to other possible interventions to prolong life which family began to recognize was not in accordance with patient's wishes and did not appear to promise and extension of quality of life . As such patient is receptive to meeting with hospice tomorrow , and will consider further a full transition to comfort measures . - In the meantime again in accordance with family wishes , we will continue supportive care and intravenous hydration to allow patient to achieve at least some degree of medical stability prior to consideration of discharge to hospice care . - We will continue to closely assess patient's cognitive functioning , and minimize discomfort wherever possible . - Palliative care has not signed off with final recs, may reconsider hospice as noted above with medical stabilization, continue to discuss with family, monitor patient for improvement. #Severe Protein Malnutrition syndrome - related to anorexia/dementia described above - Palliative care involved and discussed options with family - Supplemental feeding will not be considered however should mentation improve will certainly attempt feeding pending speech evaluation #2 is Alzheimer's Dementia chronic active -- psych consulted, recommending limiting neuroleptics when possible to prevent further sedation. Given patient's nonresponsive status appears much more they were able to contribute. -- hold po meds, patient is somnolent #3 Gerd chronic active iv famotidine 20 mg twice a day #4 insomnia chronic active -- hold medication trazodone #5 anxiety chronic active -- hold home medication lorazepam #6 prostate problem chronic active -- Patient has no home medications Pain Evaluation: Adequate Pain Control VTE Prophylaxis: Sub-Q Enoxaparin, Sub-Q Fondaparinux Resuscitation Status: DNR/DNI:Do Not Resuscitate/Intubate Time spent 30 minutes Cornelio Pagan DO Mar 21, 2017 16:04
--- NOTE | 2017-03-21 17:41 | NUR ---
Activity/Oral Care: Patient resting w/eyes closed most of shift, cooperative with turning q2hr and brief changes. Family at bedside most this shift. Cleansing mouth with Nystatin as scheduled with swabs. Patient bites on swab, but releases as instructed.
[2017-03-21 20:55] VITALS: BP 143/81; PULSE 56; RESP 18; O2SAT 96
[2017-03-22 04:43] VITALS: BP 141/87; PULSE 61; RESP 18; O2SAT 96
--- NOTE | 2017-03-22 06:42 | NUR ---
Nursing, NOC care Patient continues to be drowsy, opens eyes w/ verbal stimuli, non-verbal. Oral mucosa continues w/ thick thrush on tongue. Frequent oral care at begin of shift; nystatin liquid and soft swabs helpful, as tongue is much improved this AM. Front of tongue is pink, moist. D51/2 NS w/ 20K+ @ 100/hour via PIV. No s/sx of pain/discomfort at rest. Turned and changed every 2-3 hours during noc. Calmoseptine to blanchable reddened buttocks. Daughter overnight in room, states she is "happy with the care provided during dad's stay." Call light w/in reach. CTM for changes.
[2017-03-22] MEDS: D5 0.45% NaCl + KCl 20 mEq/L 1,000 ML IV SCH ×2 (09:03→19:33)
[2017-03-22] MEDS: Nystatin 100,000 Unit/mL 5 mL Suspension PO SCH ×4 (09:03→20:45)
--- NOTE | 2017-03-22 12:06 | PCM.PNMED ---
Subjective Date of Service Mar 22, 2017 Subjective No acute changes in mentation overnight. On discussion with palliative care family has declined further consideration of hospice therapy at this time would like to continue active medical management. Patient is minimally responsive to verbal stimuli, and make grunting noises unable to communicate effectively. Exam Vital Signs Vital Sign - Last Date Time Temp Pulse Resp B/P Pulse Ox O2 Delivery O2 Flow Rate FiO2 03/22/17 04:43 36.8 61 18 141/87 96 Room Air Intake and Output 03/21/17 03/21/17 03/22/17 Cumulative From/Thru 15:00 23:00 07:00 03/18/17 09:45 - 03/22/17 06:48 Intake Total 873 ml 1349 ml 9136 ml Balance 873 ml 1349 ml 9136 ml Intake Oral 0 ml 0 ml 0 ml IV Total 873 ml 1349 ml 9136 ml # Voids 3 3 20 Exam General: Mild Distress, Patient is lying bed, mouth slightly open breathing but breathing more comfortably. He is not immediately responsive to verbal stimuli occasionally appears to gesture and motion. Low level of alertness apparent. Mouth: Mucous Membranes Dry, improving oral thrush. Chest & Lungs: Clear to auscultation & percussion Cardiovascular: Regular Rate/Rhythm Skin: Skin turgor improved IVs and Medications Medications Reviewed: Medications were reviewed in detail Lab and Diagnostics Result Diagram: 03/21/17 0725 03/22/17 0904 Microbiology PROCEDURE: US ABDOMEN ([id number]) INDICATIONS: elevated bili IMPRESSION: 1. Limited examination. 2. Diffuse increased echogenicity within the gallbladder possibly related to sludge or gallbladder calcification. Dictated by: Lynne Hart M.D. on 03/18/2017 at 20:38 Approved by: Lynne Hart M.D. on 03/18/2017 at 20:41 PROCEDURE: X-RAY CHEST ONE VIEW, PORTABLE ([id number]) INDICATIONS: lethargy, altered mental status IMPRESSION: No acute pulmonary process. Dictated by: Lynne Hart M.D. on 03/18/2017 at 9:55 Approved by: Lynne Hart M.D. on 03/18/2017 at 9:55 Assessment & Plan #1 Anorexia: Cholelithiasis, oropharyngeal kalyn, dementia, hypernatremia related encephalopathy -- Stop D5W., We will continue with D5 half-normal saline at 100 mL per hour at this time, continue to monitor urine output. -- ABG are ordered showed no concern for CO2 retention -- Ammonia levels are normal, troponin is normal -- Keep nothing by mouth until patient is more alert and oriented -- TBW: 39 Free Water deficit: 39(14/140) =3.9L -- Change in sodium per L 1/2 NSS infusate= 77/40= 1.9, can not give more than 250 cc/hr -- Consider switching back to D5W if adjustment in sodium is not achieved. -- Swallow evaluation pending improved mentation, again deferred today due to poor mentation. -- Mycelex troches discontinued with 1 time dose of fluconazone provided in place on recommendations of paliative care. -- Palliative care consulted and an extensive conversation with patient earlier today . They did Discuss PEG tube placement in addition to other possible interventions to prolong life which family began to recognize was not in accordance with patient's wishes and did not appear to promise and extension of quality of life . As such patient is receptive to meeting with hospice tomorrow , and will consider further a full transition to comfort measures . - In the meantime again in accordance with family wishes , we will continue supportive care and intravenous hydration to allow patient to achieve at least some degree of medical stability prior to consideration of discharge to hospice care . - We will continue to closely assess patient's cognitive functioning , and minimize discomfort wherever possible . - Palliative care has not signed off with final recs, may reconsider hospice as noted above with medical stabilization, continue to discuss with family, monitor patient for improvement. - Tapering IV hydration at this time given patient's normalize sodium level. - Disposition pending improved mentation or reconsideration of hospice care should she not improve with medical stabilization. 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 #2 is Alzheimer's Dementia chronic active -- psych consulted, recommending limiting neuroleptics when possible to prevent further sedation. Given patient's nonresponsive status appears much more they were able to contribute. -- hold po meds, patient is somnolent #3 Gerd chronic active iv famotidine 20 mg twice a day #4 insomnia chronic active -- hold medication trazodone #5 anxiety chronic active -- hold home medication lorazepam #6 prostate problem chronic active -- Patient has no home medications Pain Evaluation: Adequate Pain Control VTE Prophylaxis: Sub-Q Enoxaparin, Sub-Q Fondaparinux Resuscitation Status: DNR/DNI:Do Not Resuscitate/Intubate Time spent 25 minutes Cornelio Pagan DO Mar 22, 2017 12:06
--- NOTE | 2017-03-22 12:43 | NUR ---
spiritual care: follow up check in/conversational visit with family as they continue to guillen. following
--- NOTE | 2017-03-22 13:19 | NUR ---
Discussed case with MD and RN. Pt is somnolent and not appropriate for PO intake at this time. PUMP AND STILL OPERATOR will follow and evaluate for swallowing when appropriate.
[2017-03-22 13:53] VITALS: BP 111/70; PULSE 71; RESP 18; O2SAT 95
--- NOTE | 2017-03-22 15:18 | NUR ---
Social Work: Continued d/c planning / Multidisciplinary Rounds Data: Pt is on day 4 of hospitalization. EMR reviewed. Pt discussed in rounds. MD states pt not likely ready for d/c soon. Pt and family declined hospice at this time. Pt requires IV fluids at this time and BUS CLEANER confirmed with [facility] that they cannot accommodate this in their facility. They would need to complete and assessment before pt returns. BUS CLEANER will continue to follow. Assessment: Pt from [facility]. Plan: Pt will possibly pass here at the hospital vs going back to [facility] if IV fluids not needed vs SNF. BUS CLEANER will continue to follow. JANEL Hernandes
--- NOTE | 2017-03-22 18:24 | NUR ---
Somnolent Patient non verbal, at best today had a feeble response to whether he had pain-unable to determine response. Patient mouth swabbed with Nystatin. Patient not able to follow directions to swallow or close/open his mouth. Medications and saliva drooled and wiped by staff. Patient very difficult to arouse or keep awake. Patient family given teaching on not giving food if unable to follow directions. later informed nurse that she attempted to feed patient pudding, but patient was unable to swallow it.
[2017-03-23 05:23] VITALS: BP 160/80; PULSE 58; RESP 18; O2SAT 98
[2017-03-23] MEDS: Nystatin 100,000 Unit/mL 5 mL Suspension PO SCH ×4 (09:33→20:15)
--- NOTE | 2017-03-23 10:43 | NUR ---
MYA signed by daughter.
--- NOTE | 2017-03-23 10:59 | NUR ---
NUTRITION FOLLOW-UP: ASSESS: 76 YO male admitted with h/o severe dementia and reports of refusal/decreased PO intake x 2 wks at memory care unit. Per family conference facilitated by Palliative team today, family has come to realize that the patient is at the end of his life, however appears at this time deciding not to pursue hospice, report that PEG tube would not be within pt wishes. At this time, pt continues to be minimally responsive, taking minimal po on Stimulation diet x 5 days. PMHX: Severe dementia, GERD DIET: Stimulation, honey thick liquids. PO intake 0% x 5d LABS: Glu 100, Ca 8.0 MEDS: Reviewed GI: Documentation confusing; I&O screen reports no BM, other screens note diarrhea. No BM recorded as of 03/23 WEIGHT: 64.5 kg, Wt in 11/2016:74kg BMI: 23.0 Noted weight loss of 13% x 4 mos. EST.NEEDS: WEIGHT GAIN (30-35kcal/kg;1.2-1.5g/kg IBW) Kcal: [id number] Pro: 80-95g NUTRITION DIAGNOSIS: (1) Severe malnutrition in the context of chronic illness related to altered mental status/severe dementia with decreased PO intake x 2wks as evidenced by 13% weight loss x 4 months, currently refusing stimulation diet - PERSISTS. INTERVENTION: (1) Add supplements (magic cup) as diet advances. (2) At this time, PEG tube is not an option. In the event family reconsiders, PEG tube feeding recommendation follows. Initiate Jevity 1.5 at 10ml/hr advancing 10ml q 12 hrs to goal rate of 55ml/hr with H20 flush of 55ml q 2 hrs to provide 1897kca, 81g protein, 1621ml fluid. MONITOR/EVALUATE: Nutrition needs, goals of care, labs, diet advancement per ST, overall POC. F/U per high risk.
--- NOTE | 2017-03-23 12:17 | NUR ---
Inpatient Wound Nurse Patient seen by CWON RN for PU Protocol Prevention. Patient cooperative remained somnolent throughout assessment. No open areas observed, heels pink and warm, no areas of bogginess. Reddened area near coccyx easily blanchable and returned to pink quickly. No additional interventions are needed at this time, staff aware of patient's need for frequent repositioning and floating heels.
--- NOTE | 2017-03-23 13:22 | PCM.PNMED ---
Subjective Date of Service Mar 23, 2017 Subjective Minimal changes past 24 hours. Patient is perhaps a little more alert based on subjective evaluation of myself and family members, still remains largely nonverbal no additional history can be obtained. Exam Vital Signs Vital Sign - Last Date Time Temp Pulse Resp B/P Pulse Ox O2 Delivery O2 Flow Rate FiO2 03/23/17 05:23 37.0 58 18 160/80 98 Room Air Intake and Output 03/22/17 03/22/17 03/23/17 Cumulative From/Thru 15:00 23:00 07:00 03/18/17 09:45 - 03/22/17 18:54 Intake Total 0 ml 9136 ml Balance 0 ml 9136 ml Intake Oral 0 ml 0 ml IV Total 9136 ml # Voids 3 23 # Bowel Movements 0 0 Exam General: Mild Distress, Patient is lying bed, mouth slightly open breathing but breathing more comfortably. He is not immediately responsive to verbal stimuli occasionally appears to gesture and motion. Low level of alertness apparent. Mouth: Mucous Membranes Dry, thrush or sensory resolved, dry crusted mucus noted in back of oropharynx. Otherwise normal exam. Chest & Lungs: Clear to auscultation & percussion Cardiovascular: Regular Rate/Rhythm Skin: Skin turgor improved IVs and Medications Medications Reviewed: Medications were reviewed in detail Lab and Diagnostics Result Diagram: 03/21/17 0725 03/23/17 0624 Microbiology PROCEDURE: US ABDOMEN ([id number]) INDICATIONS: elevated bili IMPRESSION: 1. Limited examination. 2. Diffuse increased echogenicity within the gallbladder possibly related to sludge or gallbladder calcification. Dictated by: Lynne Hart M.D. on 03/18/2017 at 20:38 Approved by: Lynne Hart M.D. on 03/18/2017 at 20:41 PROCEDURE: X-RAY CHEST ONE VIEW, PORTABLE ([id number]) INDICATIONS: lethargy, altered mental status IMPRESSION: No acute pulmonary process. Dictated by: Lynne Hart M.D. on 03/18/2017 at 9:55 Approved by: Lynne Hart M.D. on 03/18/2017 at 9:55 Assessment & Plan #1 Anorexia: Cholelithiasis, oropharyngeal kalyn, dementia, hypernatremia related encephalopathy -- Stop D5W., We will continue with D5 half-normal saline at 100 mL per hour at this time, continue to monitor urine output. -- ABG are ordered showed no concern for CO2 retention -- Ammonia levels are normal, troponin is normal -- Keep nothing by mouth until patient is more alert and oriented -- TBW: 39 Free Water deficit: 39(14/140) =3.9L -- Change in sodium per L 1/2 NSS infusate= 77/40= 1.9, can not give more than 250 cc/hr -- Consider switching back to D5W if adjustment in sodium is not achieved. -- Swallow evaluation pending improved mentation, again deferred today due to poor mentation. -- Mycelex troches discontinued with 1 time dose of fluconazone provided in place on recommendations of paliative care. -- Palliative care consulted and an extensive conversation with patient earlier today . They did Discuss PEG tube placement in addition to other possible interventions to prolong life which family began to recognize was not in accordance with patient's wishes and did not appear to promise and extension of quality of life . As such patient is receptive to meeting with hospice tomorrow , and will consider further a full transition to comfort measures . - In the meantime again in accordance with family wishes , we will continue supportive care and intravenous hydration to allow patient to achieve at least some degree of medical stability prior to consideration of discharge to hospice care . - We will continue to closely assess patient's cognitive functioning , and minimize discomfort wherever possible . - Palliative care has not signed off with final recs, may reconsider hospice as noted above with medical stabilization, continue to discuss with family, monitor patient for improvement. - Tapering IV hydration at this time given patient's normalize sodium level. - Disposition pending improved mentation or reconsideration of hospice care should she not improve with medical stabilization. - That appears unlikely patient will make much more significant recovery, and certainly questionable if he will be able to attain any degree of medical stability without continued intravenous hydration, family remains reluctant to pursue complete comfort measures. - We will continue to discuss patient prognosis and family, may consider transition to stepdown unit which would still be able to provide some hydration as needed, patient not able to participate in the rehabilitation exercises so ideal location is not clear. 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 - Mentation remains significantly impaired, will not consider repeat swallow study today as a result #2 is Alzheimer's Dementia chronic active -- psych consulted, recommending limiting neuroleptics when possible to prevent further sedation. Given patient's nonresponsive status appears much more they were able to contribute. -- hold po meds, patient is somnolent #3 Gerd chronic active iv famotidine 20 mg twice a day #4 insomnia chronic active -- hold medication trazodone #5 anxiety chronic active -- hold home medication lorazepam #6 prostate problem chronic active -- Patient has no home medications Pain Evaluation: Adequate Pain Control VTE Prophylaxis: Sub-Q Enoxaparin, Sub-Q Fondaparinux VTE Mechanical Devices: Intermittant Pneumatic CD Resuscitation Status: DNR/DNI:Do Not Resuscitate/Intubate Time spent 25 minutes Cornelio Pagan DO Mar 23, 2017 13:22
[2017-03-23 14:00] VITALS: BP 131/79; PULSE 66; RESP 16; O2SAT 95
[2017-03-23 21:51] VITALS: BP 128/80; PULSE 72; RESP 16; O2SAT 96
[2017-03-24] MEDS: D5 0.45% NaCl + KCl 20 mEq/L 1,000 ML IV SCH ×2 (03:20→12:18)
[2017-03-24 05:38] VITALS: BP 132/75; PULSE 59; RESP 16; O2SAT 95
[2017-03-24] MEDS: Nystatin 100,000 Unit/mL 5 mL Suspension PO SCH ×4 (10:59→22:00)
[2017-03-24 15:32] VITALS: BP 97/53; PULSE 70; RESP 16; O2SAT 97
--- NOTE | 2017-03-24 15:48 | NUR ---
Passive Behavior Pt continues to exhibit passive behavior. Will slightly open eyes when aroused by sound and touch and can squeeze R hand only as a response to questioning. Many family members visiting during shift, pt at one time made a groan at one of the children - only audible acknowledgement pt made. Pt not moving freely in bed, but tends to pull to the right side. Positioned bed in upright position with family in room. Pressure Ulcer/Skin protocol in place- Q2H turns, heels lifted, freq bed checks. Continuing to monitor. Addendum: 03/24/17 at 1737 by SOFIA MCDONALD RN Later in shift pt able to minimally lift legs and left arm in bed, adjusting position. Does not appear to be in discomfort, family states pt "would let us know if he was uncomfortable."
--- NOTE | 2017-03-24 16:15 | NUR ---
Social Work: Continued d/c planning / Multidisciplinary Rounds Data: Pt is on day 6 of hospitalization. EMR reviewed. Pt discussed in rounds. MD states he spoke with pt's daughter, Valerie, who seemed more agreeable to hospice this morning. CHISEL MORTISER OPERATOR met with family members who state that pt's spouse plans to go to [facility] in the morning and speak with her ware finisher about hospice and she will come back to the hospital with a decision one way or the other for pt. CHISEL MORTISER OPERATOR will follow up and consult with hospice if family desires. Plan: CHISEL MORTISER OPERATOR will follow up with family tomorrow regarding hospice decision. CHISEL MORTISER OPERATOR will continue to follow. JANEL Hernandes
--- NOTE | 2017-03-24 19:10 | PCM.PNMED ---
Subjective Date of Service Mar 24, 2017 Subjective No acute changes and patient's mentation overnight. Still a low level of awareness, no spontaneous speech. Exam Vital Signs Vital Sign - Last Date Time Temp Pulse Resp B/P Pulse Ox O2 Delivery O2 Flow Rate FiO2 03/24/17 15:32 36.1 70 16 97/53 97 Room Air Intake and Output 03/23/17 03/23/17 03/24/17 Cumulative From/Thru 15:00 23:00 07:00 03/18/17 09:45 - 03/23/17 19:13 Intake Total 604 ml 0 ml 9740 ml Balance 604 ml 0 ml 9740 ml Intake Oral 0 ml 0 ml 0 ml IV Total 604 ml 9740 ml # Voids 2 4 29 # Bowel Movements 2 2 Exam General: Mild Distress, Patient is lying bed, mouth slightly open breathing but breathing more comfortably. He is not immediately responsive to verbal stimuli occasionally appears to gesture and motion. Low level of alertness apparent. Mouth: Mucous Membranes Dry, thrush or sensory resolved, dry crusted mucus noted in back of oropharynx. Otherwise normal exam. Chest & Lungs: Clear to auscultation & percussion Cardiovascular: Regular Rate/Rhythm IVs and Medications Medications Reviewed: Medications were reviewed in detail Lab and Diagnostics Result Diagram: 03/21/17 0725 03/23/17 1335 Microbiology PROCEDURE: US ABDOMEN ([id number]) INDICATIONS: elevated bili IMPRESSION: 1. Limited examination. 2. Diffuse increased echogenicity within the gallbladder possibly related to sludge or gallbladder calcification. Dictated by: Lynne Hart M.D. on 03/18/2017 at 20:38 Approved by: Lynne Hart M.D. on 03/18/2017 at 20:41 PROCEDURE: X-RAY CHEST ONE VIEW, PORTABLE ([id number]) INDICATIONS: lethargy, altered mental status IMPRESSION: No acute pulmonary process. Dictated by: Lynne Hart M.D. on 03/18/2017 at 9:55 Approved by: Lynne Hart M.D. on 03/18/2017 at 9:55 Assessment & Plan #1 Anorexia: Cholelithiasis, oropharyngeal kalyn, dementia, hypernatremia related encephalopathy -- Stop D5W., We will continue with D5 half-normal saline at 100 mL per hour at this time, continue to monitor urine output. -- ABG are ordered showed no concern for CO2 retention -- Ammonia levels are normal, troponin is normal -- Keep nothing by mouth until patient is more alert and oriented -- TBW: 39 Free Water deficit: 39(14/140) =3.9L -- Change in sodium per L 1/2 NSS infusate= 77/40= 1.9, can not give more than 250 cc/hr -- Consider switching back to D5W if adjustment in sodium is not achieved. -- Swallow evaluation pending improved mentation, again deferred today due to poor mentation. -- Mycelex troches discontinued with 1 time dose of fluconazone provided in place on recommendations of paliative care. -- Palliative care consulted and an extensive conversation with patient earlier today . They did Discuss PEG tube placement in addition to other possible interventions to prolong life which family began to recognize was not in accordance with patient's wishes and did not appear to promise and extension of quality of life . As such patient is receptive to meeting with hospice tomorrow , and will consider further a full transition to comfort measures . - In the meantime again in accordance with family wishes , we will continue supportive care and intravenous hydration to allow patient to achieve at least some degree of medical stability prior to consideration of discharge to hospice care . - We will continue to closely assess patient's cognitive functioning , and minimize discomfort wherever possible . - Palliative care has not signed off with final recs, may reconsider hospice as noted above with medical stabilization, continue to discuss with family, monitor patient for improvement. - Tapering IV hydration at this time given patient's normalize sodium level. - Disposition pending improved mentation or reconsideration of hospice care should she not improve with medical stabilization. - That appears unlikely patient will make much more significant recovery, and certainly questionable if he will be able to attain any degree of medical stability without continued intravenous hydration, family remains reluctant to pursue complete comfort measures. - We will continue to discuss patient prognosis and family, based on minimal changes in past few days with a stabilization of electrolytes and hydration status, it appears family is beginning to consider the possibility more strongly of a transition to hospice and complete withdrawal of medical care , with full focus on comfort measures. - Continue to discuss through this weekend as hospice would not be able to be established on next week. 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 - Mentation remains significantly impaired, will not consider repeat swallow study today as a result #2 is Alzheimer's Dementia chronic active -- psych consulted, recommending limiting neuroleptics when possible to prevent further sedation. Given patient's nonresponsive status appears much more they were able to contribute. -- hold po meds, patient is somnolent #3 Gerd chronic active iv famotidine 20 mg twice a day #4 insomnia chronic active -- hold medication trazodone #5 anxiety chronic active -- hold home medication lorazepam #6 prostate problem chronic active -- Patient has no home medications Pain Evaluation: Adequate Pain Control VTE Prophylaxis: Sub-Q Enoxaparin, Sub-Q Fondaparinux VTE Mechanical Devices: Intermittant Pneumatic CD Resuscitation Status: DNR/DNI:Do Not Resuscitate/Intubate Time spent 30 minutes Cornelio Pagan DO Mar 24, 2017 19:10
[2017-03-24 21:01] VITALS: BP 134/84; PULSE 62; RESP 18; O2SAT 97
[2017-03-25 05:38] VITALS: BP 115/71; PULSE 61; RESP 16; O2SAT 96
--- NOTE | 2017-03-25 06:39 | NUR ---
Swallow Pt alert at times. Nystatin applied with green sponge, pt noted to drool it out. When asked to swallow, pt shook his head. Asked if in pain, pt also shook his head, no verbal communication used all shift. Pt tolerated Q2 turns well.
[2017-03-25] MEDS: D5 0.45% NaCl + KCl 20 mEq/L 1,000 ML IV SCH (07:50)
[2017-03-25] MEDS: Nystatin 100,000 Unit/mL 5 mL Suspension PO SCH ×4 (07:51→21:03)
--- NOTE | 2017-03-25 09:15 | NUR ---
MYA signed Pt's signed, pt unable. Genie Strange, TECHNICAL DESIGNER
[2017-03-25 12:03] VITALS: BP 120/66; PULSE 56; RESP 16; O2SAT 97
--- NOTE | 2017-03-25 14:17 | NUR ---
Social Work: Continued d/c planning / Multidisciplinary Rounds Data: Pt is on day 7 of hospitalization. EMR reviewed, pt discussed in rounds. MD states pt not medically ready for d/c at this time. EVENT PLANNER met with pt's and daughter at bedside, pt sleeping soundly. Pt's did not get to speak with her resource forester today and plans to speak to him tomorrow if possible. She states she is concerned that pt will starve if he is on hospice. Pt's and daughter want to see what the swallow evaluation reveals before making a decision. EVENT PLANNER will follow up regarding d/c plan and if they want hospice tomorrow. MD and possibly palliative may need to have further conversation with family regarding pt's prognosis. EVENT PLANNER will continue to follow. Assessment: Pt nearing end of life, dementia, not capable of self care at this time. Plan: Developing. EVENT PLANNER will continue to follow post speech therapy and MD speaking with family. EVENT PLANNER will continue to follow. JANEL Hernandes
--- NOTE | 2017-03-25 17:34 | PCM.PNMED ---
Subjective Date of Service Mar 25, 2017 Subjective Patient mentation is slowly improving. Making more gestures for drinking, seems to be attempting to speak but is still not verbal. He is at least responsive to verbal stimuli however. No acute distress or pain evident. Exam Vital Signs Vital Sign - Last Date Time Temp Pulse Resp B/P Pulse Ox O2 Delivery O2 Flow Rate FiO2 03/25/17 12:03 36.2 56 16 120/66 97 Room Air Intake and Output 03/24/17 03/24/17 03/25/17 Cumulative From/Thru 15:00 23:00 07:00 03/18/17 09:45 - 03/25/17 05:52 Intake Total 600 ml 0 ml 1120 ml 97287 ml Balance 600 ml 0 ml 1120 ml 51449 ml Intake Oral 0 ml 0 ml 0 ml 0 ml IV Total 600 ml 1120 ml 78613 ml # Voids 2 2 3 36 # Bowel Movements 1 1 2 6 Exam General: Mild Distress, Patient is lying bed, mouth slightly open breathing but breathing more comfortably. He more responsive to verbal stimuli occasionally appears to gesture and motion. Mouth: Mucous Membranes Dry, thrush or sensory resolved, dry crusted mucus noted in back of oropharynx. Otherwise normal exam. Chest & Lungs: Clear to auscultation & percussion Cardiovascular: Regular Rate/Rhythm IVs and Medications Medications Reviewed: Medications were reviewed in detail Lab and Diagnostics Result Diagram: 03/21/17 0703/25/17 09 Microbiology PROCEDURE: US ABDOMEN ([id number]) INDICATIONS: elevated bili IMPRESSION: 1. Limited examination. 2. Diffuse increased echogenicity within the gallbladder possibly related to sludge or gallbladder calcification. Dictated by: Lynne Hart M.D. on 03/18/2017 at 20:38 Approved by: Lynne Hart M.D. on 03/18/2017 at 20:41 PROCEDURE: X-RAY CHEST ONE VIEW, PORTABLE ([id number]) INDICATIONS: lethargy, altered mental status IMPRESSION: No acute pulmonary process. Dictated by: Lynne Hart M.D. on 03/18/2017 at 9:55 Approved by: Lynne Hart M.D. on 03/18/2017 at 9:55 Assessment & Plan #1 Anorexia: Cholelithiasis, oropharyngeal kalyn, dementia, hypernatremia related encephalopathy -- Stop D5W., We will continue with D5 half-normal saline at 100 mL per hour at this time, continue to monitor urine output. -- ABG are ordered showed no concern for CO2 retention -- Ammonia levels are normal, troponin is normal -- Keep nothing by mouth until patient is more alert and oriented -- TBW: 39 Free Water deficit: 39(14/140) =3.9L -- Change in sodium per L 1/2 NSS infusate= 77/40= 1.9, can not give more than 250 cc/hr -- Consider switching back to D5W if adjustment in sodium is not achieved. -- Swallow evaluation pending improved mentation, again deferred today due to poor mentation. -- Mycelex troches discontinued with 1 time dose of fluconazone provided in place on recommendations of paliative care. -- Palliative care consulted and an extensive conversation with patient earlier today . They did Discuss PEG tube placement in addition to other possible interventions to prolong life which family began to recognize was not in accordance with patient's wishes and did not appear to promise and extension of quality of life . As such patient is receptive to meeting with hospice tomorrow , and will consider further a full transition to comfort measures . - In the meantime again in accordance with family wishes , we will continue supportive care and intravenous hydration to allow patient to achieve at least some degree of medical stability prior to consideration of discharge to hospice care . - We will continue to closely assess patient's cognitive functioning , and minimize discomfort wherever possible . - Palliative care has not signed off with final recs, may reconsider hospice as noted above with medical stabilization, continue to discuss with family, monitor patient for improvement. - Tapering IV hydration at this time given patient's normalize sodium level. - Disposition pending improved mentation or reconsideration of hospice care should she not improve with medical stabilization. - That appears unlikely patient will make much more significant recovery, and certainly questionable if he will be able to attain any degree of medical stability without continued intravenous hydration, family remains reluctant to pursue complete comfort measures. - We will continue to discuss patient prognosis and family, based on minimal changes in past few days with a stabilization of electrolytes and hydration status, it appears family is beginning to consider the possibility more strongly of a transition to hospice and complete withdrawal of medical care , with full focus on comfort measures. - Continue to discuss through this weekend as hospice would not be able to be established on next week. - Ideally advance diet and discontinue intravenous fluids if possible, with increased level of alertness we will trial swallow study tomorrow. 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 - Mentation remains significantly impaired, will not consider repeat swallow study today as a result #2 is Alzheimer's Dementia chronic active -- psych consulted, recommending limiting neuroleptics when possible to prevent further sedation. Given patient's nonresponsive status appears much more they were able to contribute. -- hold po meds, patient is somnolent #3 Gerd chronic active iv famotidine 20 mg twice a day #4 insomnia chronic active -- hold medication trazodone #5 anxiety chronic active -- hold home medication lorazepam #6 prostate problem chronic active -- Patient has no home medications Disposition: Most likely discharge to assisted living facility on hospice care, however family is not yet ready to consent to this, still desiring intravenous fluids while by mouth intake is poor. Pain Evaluation: Adequate Pain Control VTE Prophylaxis: Sub-Q Enoxaparin, Sub-Q Fondaparinux VTE Mechanical Devices: Intermittant Pneumatic CD Resuscitation Status: DNR/DNI:Do Not Resuscitate/Intubate Time spent 30 minutes Cornelio Pagan DO Mar 25, 2017 17:34
[2017-03-25 20:54] VITALS: BP 125/71; PULSE 63; RESP 14; O2SAT 100
[2017-03-26] MEDS: D5 0.45% NaCl + KCl 20 mEq/L 1,000 ML IV SCH ×2 (04:12→22:58)
[2017-03-26 04:24] VITALS: BP 124/74; PULSE 58; RESP 14; O2SAT 95
--- NOTE | 2017-03-26 05:11 | NUR ---
Pain Pt appeared uncomfortable in bed. Wiggling, tossing LE over the rail, trying to sit up. Didn't respond when asked if in pain. Eyes open and looking around. IV morphine given. Pt more relaxed afterwards, UE still appeared fidgety. Pt appeared awake with Q2hr turns. Bed in low position, 3 rails up, call light in reach. Will continue to monitor.
[2017-03-26] MEDS: Nystatin 100,000 Unit/mL 5 mL Suspension PO SCH ×4 (07:09→20:55)
[2017-03-26 14:45] VITALS: BP 112/62; PULSE 81; RESP 14; O2SAT 96
--- NOTE | 2017-03-26 15:00 | PCM.PNMED ---
Subjective Date of Service Mar 26, 2017 Subjective pt was stable overnight daughter at the bedside, pt not following command mild grimace on palpation of abdomen looks comfortable, awaits official s/s eval daughter agreed on d/c to home with hospice Exam Vital Signs Vital Sign - Last Date Time Temp Pulse Resp B/P Pulse Ox O2 Delivery O2 Flow Rate FiO2 03/26/17 04:24 36.3 58 14 124/74 95 Room Air Intake and Output 03/25/17 03/25/17 03/26/17 Cumulative From/Thru 15:00 23:00 07:00 03/18/17 09:45 - 03/26/17 06:41 Intake Total 608 ml 571 ml 83408 ml Balance 608 ml 571 ml 71622 ml Intake Oral 0 ml 0 ml 0 ml IV Total 608 ml 571 ml 04102 ml # Voids 3 3 42 # Bowel Movements 0 6 Exam Elderly gentleman does not open his eyes or following commands no JVD, MMM, no LAD, no thrush RRR, nl s1 s2, gr2 pansystolic m at LUSB CTAB, no w,c S,ND,NT,normoactive BS+ warm, no edema, pulses 2/2 IVs and Medications Medications Reviewed: Medications were reviewed in detail Lab and Diagnostics Result Diagram: 03/21/17 0725 03/26/17 0555 Microbiology PROCEDURE: US ABDOMEN ([id number]) INDICATIONS: elevated bili IMPRESSION: 1. Limited examination. 2. Diffuse increased echogenicity within the gallbladder possibly related to sludge or gallbladder calcification. Dictated by: Lynne Hart M.D. on 03/18/2017 at 20:38 Approved by: Lynne Hart M.D. on 03/18/2017 at 20:41 PROCEDURE: X-RAY CHEST ONE VIEW, PORTABLE ([id number]) INDICATIONS: lethargy, altered mental status IMPRESSION: No acute pulmonary process. Dictated by: Lynne Hart M.D. on 03/18/2017 at 9:55 Approved by: Lynne Hart M.D. on 03/18/2017 at 9:55 Assessment & Plan acute, active Acute on chronic deconditioning in the setting of severe dementia, dehydration, malnutrition -As per the conversation with the daughter today, we will anticipate to discharge to home with hospice, we will bring hospice info presenting today -Palliated care signed off -Appreciate social welfare clerk input #Severe Protein Malnutrition syndrome, related to anorexia/dementia described above -Patient failed swallowing evaluation, kept in nothing by mouth -Family decided not to proceed with artificial nutrition. chronic, stable, will hold off on all oral medicine at this point #3 Gerd chronic active iv famotidine 20 mg twice a day #4 insomnia chronic active -- hold medication trazodone #5 anxiety chronic active -- hold home medication lorazepam #6 prostate problem chronic active -- Patient has no home medications Disposition: As above VTE Prophylaxis: Sub-Q Enoxaparin, Sub-Q Fondaparinux VTE Mechanical Devices: Intermittant Pneumatic CD Resuscitation Status: DNR/DNI:Do Not Resuscitate/Intubate Time spent 35min Lilia Huber MD Mar 26, 2017 09:24
--- NOTE | 2017-03-26 17:26 | NUR ---
Day Shift Pt remains minimally responsive this shift. Does seem to be opening eyes and moving around in bed more frequently than yesterday, but no verbal responses and has not been able to shake or nod head to answer questions. Remains NPO, with frequent oral care. IVF infusing. Staff turning pt approx q2 hrs to prevent skin breakdown and for comfort. Family at bedside. Cares continue.
[2017-03-26 20:23] VITALS: BP 123/77; PULSE 66; RESP 16; O2SAT 97
[2017-03-27 05:21] VITALS: BP 131/77; PULSE 60; RESP 16
--- NOTE | 2017-03-27 06:00 | NUR ---
Shift Note 7p-7a Pt mostly somnolent for most of the night, Pt became restless once during the night, moving about in bed and seemed agitated, medicated with IV Morphine for discomfort and Pt went back to sleep. VS stable and afebrile. Bilateral heels boggie and red, Placed Pt in heel boots for skin protection.
[2017-03-27] MEDS: Nystatin 100,000 Unit/mL 5 mL Suspension PO SCH ×4 (09:25→22:20)
--- NOTE | 2017-03-27 11:56 | NUR ---
Social Work: Continued Discharge Planning/Multidisciplinary Rounds D: EMR reviewed. Pt is on day 9 of hospitalization for hypernatremia per H&P. SW received T/C from at [facility] stating they can accept pt on Hospice. Per rounds, pt and family agreeable to [facility]. SW placed T/C and left voicemail with Hospice [facility] to determine next available opening date. SW will await call to coordinate info visit/open date with family. A: Pt for whom Hospice has been deemed medically necessary - order received. P: SW will await call to coordinate info visit/open date with family. SW will continue to follow. JANEL Burton Addendum: 03/27/17 at 1439 by ARJUN KHAN HOLA confirmed that [facility] can deliver equipment tomorrow and open with pt on Sunday morning. [facility] is willing to accept pt tomorrow with equipment delivery and hospice open date for Sunday. Medications need to be faxed to [facility] tomorrow so they can fill rx. T/C to spouse Calista [phone] to discuss plan - Calista agreeable to plan and confirmed she will update daughter. Hospice confirmed to deliver equipment to [facility] tomorrow and open with pt on Sunday AM. All updated and agreeable to plan. SW will continue to follow. JANEL Burton
--- NOTE | 2017-03-27 12:29 | NUR ---
Mentation Pt. slept most of the morning. He opened his eyes briefly during nursing activity. He didn't make any meaningful interaction with others. Continue to turn him Q2 hours and keep heels off bed with heel boots. His bottom is blanching red with maceration. Calmoseptine applied to perineum with each brief change (incontinent of urine) for skin protection. Oral care was given regularly.
[2017-03-27 13:43] VITALS: BP 131/84; PULSE 57; RESP 16; O2SAT 82
--- NOTE | 2017-03-27 16:35 | PCM.PNMED ---
Subjective Date of Service Mar 27, 2017 Subjective pt remained stable, IVF running, not communicative Exam Vital Signs Vital Sign - Last Date Time Temp Pulse Resp B/P Pulse Ox O2 Delivery O2 Flow Rate FiO2 03/27/17 13:43 36.4 57 16 131/84 82 Room Air Intake and Output 03/26/17 03/26/17 03/27/17 Cumulative From/Thru 15:00 23:00 07:00 03/18/17 09:45 - 03/27/17 06:04 Intake Total 621 ml 579 ml 13017 ml Balance 621 ml 579 ml 61810 ml Intake Oral 0 ml 0 ml IV Total 621 ml 579 ml 12221 ml # Voids 5 6 53 # Bowel Movements 0 0 6 Exam Elderly gentleman does not open his eyes or following commands no JVD, MMM, no LAD, no thrush RRR, nl s1 s2, gr2 pansystolic m at LUSB CTAB, no w,c S,ND,NT,normoactive BS+ warm, no edema, pulses 2/2 IVs and Medications Medications Reviewed: Medications were reviewed in detail Lab and Diagnostics Result Diagram: 03/21/17 0725 03/26/17 0555 Microbiology PROCEDURE: US ABDOMEN ([id number]) INDICATIONS: elevated bili IMPRESSION: 1. Limited examination. 2. Diffuse increased echogenicity within the gallbladder possibly related to sludge or gallbladder calcification. Dictated by: Lynne Hart M.D. on 03/18/2017 at 20:38 Approved by: Lynne Hart M.D. on 03/18/2017 at 20:41 PROCEDURE: X-RAY CHEST ONE VIEW, PORTABLE ([id number]) INDICATIONS: lethargy, altered mental status IMPRESSION: No acute pulmonary process. Dictated by: Lynne Hart M.D. on 03/18/2017 at 9:55 Approved by: Lynne Hart M.D. on 03/18/2017 at 9:55 Assessment & Plan acute, active Acute on chronic deconditioning in the setting of severe dementia, dehydration, malnutrition -As per the conversation with the daughter on 03/26, planned for discharge to [facility] with hospice -Palliated care signed off as family didn't sign up for hospice earlier the course. -Appreciate aids social worker input #Severe Protein Malnutrition syndrome, related to anorexia/dementia described above -Patient failed swallowing evaluation, kept in nothing by mouth -Family decided not to proceed with artificial nutrition. chronic, stable, will hold off on all oral medicine at this point #3 Gerd chronic active iv famotidine 20 mg twice a day #4 insomnia chronic active -- hold medication trazodone #5 anxiety chronic active -- hold home medication lorazepam #6 prostate problem chronic active -- Patient has no home medications Disposition: As above, likely d/c to [facility] tomorrow, equipment delivery tomorrow, hospice open on Sunday. VTE Prophylaxis: Sub-Q Enoxaparin, Sub-Q Fondaparinux VTE Mechanical Devices: Intermittant Pneumatic CD Resuscitation Status: DNR/DNI:Do Not Resuscitate/Intubate Time spent 35min Lilia Huber MD Mar 27, 2017 16:35
[2017-03-27] MEDS: D5 0.45% NaCl + KCl 20 mEq/L 1,000 ML IV SCH (19:57)
[2017-03-27] MEDS: Acetaminophen IV 1,000 MG in IV Premix 1 EACH IV PRN (19:57)
[2017-03-27 20:19] VITALS: BP 128/74; PULSE 60; RESP 16; O2SAT 92
[2017-03-28 06:02] VITALS: BP 132/74; PULSE 64; RESP 16; O2SAT 94
[2017-03-28] MEDS: Nystatin 100,000 Unit/mL 5 mL Suspension PO SCH ×4 (07:37→22:29)
--- NOTE | 2017-03-28 10:20 | NUR ---
Social Work-continued d/c planning/ multidisciplinary rounds: Data:EMR Reviewed. Pt is on day 10 of hospitalization for hypernatremia per H&P. Pt is not medically stable at this time. HOLA spoke with in morning rounds, who informed SW that she would not want pt to discharge prior to Hospice opening with pt on Sunday. HOLA spoke with Keyla at [facility] and provided her with update of discharge planned for Sunday. HOLA called Janel from Hospice who states that DME will still be delivered today and she is working on when they can open with pt on Sunday. Janel called back and confirms they can open with pt around 1-2, so pt will need to be discharged around 1200. Pt will likely need BLS transport.HOLA updated pt's and son in law at bedside of plan to discharge pt on Sunday when Hospice can open both agreeable. SW will continue to follow. Assessment:pt who will return to [facility] on Hospice services. Plan:Pt to discharge back to [facility] on Sunday around 1200 via BLS. Hospice to deliver DME today and can open with pt on Sunday between 1-2 pm. [facility], Hospice, and pt/family updated and agreeable. HOLA will continue to follow. JANEL Fontenot
[2017-03-28 14:31] VITALS: BP 167/76; PULSE 63; RESP 14; O2SAT 94
[2017-03-28] MEDS: D5 0.45% NaCl + KCl 20 mEq/L 1,000 ML IV SCH (14:48)
[2017-03-28] MEDS: Acetaminophen IV 1,000 MG in IV Premix 1 EACH IV PRN (15:25)
--- NOTE | 2017-03-28 16:24 | NUR ---
Daily update Patient alert in morning trying to speak. Patient was able to say some words at times in quiet voice, using extensive effort to speak. Patient was repositioned every 2 hours and has foam heal boots on to relieve pressure from heals. Patient continues to be NPO with D5 1/2NS with K+20 running at 50mL/Hr. Patient showed signs of discomfort this afternoon and was administered IV Tylenol PRN as ordered. Upon reassessment, Patient was sleeping with no signs of discomfort. Patient has voided twice, incontinent. Urine is manas in color and minimal. Patient family in room with patient throughout the day. Plan remains for discharge on Sunday at this time and open with Hospice at 1100.
--- NOTE | 2017-03-28 19:47 | PCM.PNMED ---
Subjective Date of Service Mar 28, 2017 Subjective Patient denies any pain but is not able to verbalize very much. Relative is at bedside. Exam Vital Signs Vital Sign - Last Date Time Temp Pulse Resp B/P Pulse Ox O2 Delivery O2 Flow Rate FiO2 03/28/17 14:31 36.4 63 14 167/76 94 Room Air Intake and Output 03/27/17 03/27/17 03/28/17 Cumulative From/Thru 15:00 23:00 07:00 03/18/17 09:45 - 03/28/17 06:03 Intake Total 640 ml 0 ml 54403 ml Balance 640 ml 0 ml 15881 ml Intake Oral 0 ml 0 ml 0 ml IV Total 640 ml 99854 ml # Voids 5 4 62 # Bowel Movements 0 0 6 Exam Head: Normocephalic atraumatic Mouth: Dry mucosa. Chest: Decreased breath sounds at his bases Cor: Regular rate and rhythm S1-S2 Abdomen: Soft nontender bowel sounds present Extremities: No pedal edema Lab and Diagnostics Laboratory Tests 72 Hours Test 03/26/17 05:55 Sodium Level 135mEq/L (134-144) Potassium Level 4.1mEq/L (3.5-5.2) Chloride Level 102mEq/L (97-108) Carbon Dioxide Level 21mmol/L (18-29) Blood Urea Nitrogen 7mg/dL (8-27) Creatinine 0.61mg/dL (0.76-1.27) Estimat Glomerular Filtration Rate 137mL/min (>59) Glucose Level 98mg/dL (60-99) Calcium Level 7.9mg/dL (8.5-10.1) Result Diagram: 03/26/17 0555 Microbiology PROCEDURE: US ABDOMEN ([id number]) INDICATIONS: elevated bili IMPRESSION: 1. Limited examination. 2. Diffuse increased echogenicity within the gallbladder possibly related to sludge or gallbladder calcification. Dictated by: Lynne Hart M.D. on 03/18/2017 at 20:38 Approved by: Lynne Hart M.D. on 03/18/2017 at 20:41 PROCEDURE: X-RAY CHEST ONE VIEW, PORTABLE ([id number]) INDICATIONS: lethargy, altered mental status IMPRESSION: No acute pulmonary process. Dictated by: Lynne Hart M.D. on 03/18/2017 at 9:55 Approved by: Lynne Hart M.D. on 03/18/2017 at 9:55 Assessment & Plan acute, active Acute on chronic deconditioning in the setting of severe dementia, dehydration, malnutrition -As per the conversation with the daughter on 03/26, planned for discharge to [facility] with hospice -Palliated care signed off as family didn't sign up for hospice earlier the course. -Appreciate social worker clinical input -Patient [facility] to [facility] to [facility] but given its assisted living will need to wait until hospice is able to visit the patient there which apparently will try to move up and check with them to see house and they can get this done. 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 chronic, stable, will hold off on all oral medicine at this point #3 Gerd chronic active iv famotidine 20 mg twice a day #4 insomnia chronic active -- hold medication trazodone #5 anxiety chronic active -- hold home medication lorazepam #6 prostate problem chronic active -- Patient has no home medications Disposition: As above, likely d/c to [facility] tomorrow, equipment delivery tomorrow, hospice open on Sunday. VTE Prophylaxis: Sub-Q Enoxaparin, Sub-Q Fondaparinux VTE Mechanical Devices: Intermittant Pneumatic CD Resuscitation Status: DNR/DNI:Do Not Resuscitate/Intubate Time spent 20 minutes Yolanda Campbell MD Mar 28, 2017 19:47
[2017-03-28 19:50] VITALS: BP 110/62; PULSE 74; RESP 16; O2SAT 96
[2017-03-29 05:10] VITALS: BP 140/72; PULSE 87; RESP 16; O2SAT 95
[2017-03-29] MEDS: Nystatin 100,000 Unit/mL 5 mL Suspension PO SCH ×4 (08:18→22:29)
--- NOTE | 2017-03-29 10:16 | NUR ---
Social Work: Multidisciplinary Rounds Pt discussed in rounds. MD states pt ready for d/c when hospice can open. Pt to d/c on Saturday 03/31 to [facility] before 12noon with hospice to open at 1pm. DME delivered 03/28. JANEL Hernandes
[2017-03-29] MEDS: D5 0.45% NaCl + KCl 20 mEq/L 1,000 ML IV SCH (10:51)
[2017-03-29 13:01] VITALS: BP 125/76; PULSE 60; RESP 16; O2SAT 96
--- NOTE | 2017-03-29 16:53 | NUR ---
Status Pt stable and turned q2h today and brief changed when wet. Family at bedside. No s/sx of discomfort.
--- NOTE | 2017-03-29 18:49 | PCM.PNMED ---
Subjective Date of Service Mar 29, 2017 Subjective Patient is resting in bed and is nonverbal and slightly drowsy and appears in no pain distress. Exam Vital Signs Vital Sign - Last Date Time Temp Pulse Resp B/P Pulse Ox O2 Delivery O2 Flow Rate FiO2 03/29/17 13:01 36.7 60 16 125/76 96 Room Air Intake and Output 03/28/17 03/28/17 03/29/17 Cumulative From/Thru 15:00 23:00 07:00 03/18/17 09:45 - 03/29/17 05:31 Intake Total 1399 ml 100 ml 46493 ml Balance 1399 ml 100 ml 21133 ml Intake Oral 25 ml 100 ml 125 ml IV Total 1374 ml 34111 ml # Voids 4 4 70 # Bowel Movements 0 0 6 Exam Constitutional elderly male in bed drowsy does arouse to painful and some verbal stimuli Head: Normocephalic atraumatic Chest: Clear to auscultation Cor: Regular rate and rhythm S1-S2 Abdomen: Soft nontender bowel sounds present Lab and Diagnostics Result Diagram: 03/26/17 0555 Microbiology PROCEDURE: US ABDOMEN ([id number]) INDICATIONS: elevated bili IMPRESSION: 1. Limited examination. 2. Diffuse increased echogenicity within the gallbladder possibly related to sludge or gallbladder calcification. Dictated by: Lynne Hart M.D. on 03/18/2017 at 20:38 Approved by: Lynne Hart M.D. on 03/18/2017 at 20:41 PROCEDURE: X-RAY CHEST ONE VIEW, PORTABLE ([id number]) INDICATIONS: lethargy, altered mental status IMPRESSION: No acute pulmonary process. Dictated by: Lynne Hart M.D. on 03/18/2017 at 9:55 Approved by: Lynne Hart M.D. on 03/18/2017 at 9:55 Assessment & Plan acute, active Acute on chronic deconditioning in the setting of severe dementia, dehydration, malnutrition -As per the conversation with the daughter on 03/26, planned for discharge to [facility] with hospice -Palliated care signed off as family didn't sign up for hospice earlier the course. -Appreciate healthcare social worker input -Patient is to go [facility] to [facility] but given its assisted living will need to wait until hospice is able to visit the patient there which apparently will be Sunday (will try to move up and check with them to see house and they can get this done). 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 chronic, stable, will hold off on all oral medicine at this point #3 Gerd chronic active iv famotidine 20 mg twice a day #4 insomnia chronic active -- hold medication trazodone #5 anxiety chronic active -- hold home medication lorazepam #6 prostate problem chronic active -- Patient has no home medications Disposition: As above, likely d/c to [facility] tomorrow, equipment delivery tomorrow, hospice open on Sunday. VTE Prophylaxis: Sub-Q Enoxaparin, Sub-Q Fondaparinux VTE Mechanical Devices: Intermittant Pneumatic CD Resuscitation Status: DNR/DNI:Do Not Resuscitate/Intubate Time spent 20 minutes Yolanda Campbell MD Mar 29, 2017 18:49
[2017-03-29 20:56] VITALS: BP 121/70; PULSE 62; RESP 18; O2SAT 96
[2017-03-30 05:35] VITALS: BP 113/72; PULSE 58; RESP 16; O2SAT 97
--- NOTE | 2017-03-30 06:24 | NUR ---
Uneventful Night: Pt had an uneventful night, no c/o pain, chest pain or SOB. Pt slept most of the night, would respond with voice and touch by opening his eyes and tracking staff for a few seconds and then would close his eyes again; no s/s of distress, turned Q2-3 hrs. Oral care provided several times during shift. Slept most of the night; no family at bedside.
[2017-03-30] MEDS: D5 0.45% NaCl + KCl 20 mEq/L 1,000 ML IV SCH ×2 (06:39→22:19)
[2017-03-30] MEDS: Nystatin 100,000 Unit/mL 5 mL Suspension PO SCH ×5 (08:30→22:23)
[2017-03-30 13:09] VITALS: BP 104/64; PULSE 60; RESP 16; O2SAT 97
[2017-03-30] MEDS ORDERED: Acetaminophen IV 1,000 MG in IV Premix 1 EACH IV PRN (15:30)
--- NOTE | 2017-03-30 16:03 | NUR ---
Social Work: Readiness for d/c Data: Pt is on day 12 of hospitalization. EMR reviewed. Pt discussed in multidisciplinary rounds. [employer] awaiting BLS transportation orders from . [employer] spoke with hospice of the and confirmed they are planning on 1PM open time tomorrow. [employer] spoke with Juliet with [facility] who confirms that Hospice equipment was delivered on 03/28 and they are ready for pt tomorrow. Pt will d/c to [facility] via BLS tomorrow with hospice to open at 1pm. [employer] will continue to follow. Assessment: Pt from [facility], going back with hospice. Plan: Pt will d/c to [facility] via BLS tomorrow around noon with hospice to open at 1pm. [employer] will continue to follow. JANEL Hernandes
--- NOTE | 2017-03-30 16:17 | NUR ---
spiritual care: follow up brief caring visit with pt and family. pt rather alert, attended by dtr in sitting position in bed. and dtr shared memories and day report. family continues to anticipate d/c-hospice care beginning tomorrow.
--- NOTE | 2017-03-30 16:21 | PCM.PNMED ---
Subjective Date of Service Mar 30, 2017 Subjective pt seemed more responsive, opened his eyes and smiled tolerated po feeding as needed for leisure per family awaits hospice tomorrow Exam Vital Signs Vital Sign - Last Date Time Temp Pulse Resp B/P Pulse Ox O2 Delivery O2 Flow Rate FiO2 03/30/17 13:09 36.7 60 16 104/64 97 Room Air Intake and Output 03/29/17 03/29/17 03/30/17 Cumulative From/Thru 15:00 23:00 07:00 03/18/17 09:45 - 03/30/17 06:23 Intake Total 0 ml 633 ml 52022 ml Balance 0 ml 633 ml 55525 ml Intake Oral 0 ml 0 ml 125 ml IV Total 633 ml 43775 ml # Voids 4 2 76 # Bowel Movements 0 6 Exam Elderly gentleman spontaneously opens his eyes, not following commands no JVD, MMM, no LAD, no thrush RRR, nl s1 s2, gr2 pansystolic m at LUSB CTAB, no w,c S,ND,NT,normoactive BS+ warm, no edema, pulses 2/2 IVs and Medications Medications Reviewed: Medications were reviewed in detail Lab and Diagnostics Result Diagram: 03/26/17 0555 Microbiology PROCEDURE: US ABDOMEN ([id number]) INDICATIONS: elevated bili IMPRESSION: 1. Limited examination. 2. Diffuse increased echogenicity within the gallbladder possibly related to sludge or gallbladder calcification. Dictated by: Lynne Hart M.D. on 03/18/2017 at 20:38 Approved by: Lynne Hart M.D. on 03/18/2017 at 20:41 PROCEDURE: X-RAY CHEST ONE VIEW, PORTABLE ([id number]) INDICATIONS: lethargy, altered mental status IMPRESSION: No acute pulmonary process. Dictated by: Lynne Hart M.D. on 03/18/2017 at 9:55 Approved by: Lynne Hart M.D. on 03/18/2017 at 9:55 Assessment & Plan acute, active Acute on chronic deconditioning in the setting of severe dementia, dehydration, malnutrition -As per the conversation with the daughter on 03/26, planned for discharge to [facility] with hospice on 03/30 tomorrow -Palliated care signed off as family didn't sign up for hospice earlier the course. 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 -leisurely feeding per family chronic, stable, will hold off on all oral medicine at this point #3 Gerd chronic active iv famotidine 20 mg twice a day #4 insomnia chronic active -- hold medication trazodone #5 anxiety chronic active -- hold home medication lorazepam #6 prostate problem chronic active -- Patient has no home medications Disposition: As above, likely d/c to [facility] tomorrow, equipment delivery tomorrow, hospice open on Sunday. VTE Prophylaxis: Sub-Q Enoxaparin, Sub-Q Fondaparinux VTE Mechanical Devices: Intermittant Pneumatic CD Resuscitation Status: DNR/DNI:Do Not Resuscitate/Intubate Time spent 35min Lilia Huber MD Mar 30, 2017 16:21
--- NOTE | 2017-03-30 19:36 | NUR ---
Oral care/Diet Pt family wanting to give pt some HT liquid (ice tea). Informed pt about ST ordered diet and the risks of aspiration. Had family sign waiver form and placed in chart. When pt alert - Administered Nystatin solution to pt by mouth swab. Rinsed and dried with mouth swabs. Even with oral care, pt still retained some solution in mouth and spit it out after. Other doses held d/t pt alertness. Reported to NOC shift to be careful with further doses.
[2017-03-30 21:03] VITALS: BP 129/62; PULSE 59; RESP 16; O2SAT 96
--- NOTE | 2017-03-31 04:43 | NUR ---
Uneventful Night: Pt had an uneventful night, no c/o pain, chest pain or SOB. Pt slept most of the night, would respond with voice and touch by opening his eyes and tracking staff for a few seconds and then would close his eyes again; no s/s of distress, turned Q2-3 hrs. Oral care provided during shift. Unable to administer oral Nystatin due to pt clamping his lips closed and refusing to open mouth for medicaiton. Slept most of the night; no family at bedside.
[2017-03-31 05:05] VITALS: BP 147/76; PULSE 61; RESP 16; O2SAT 96
--- NOTE | 2017-03-31 10:44 | PCM.DIMED ---
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 You were treated supportively with IV fluid. You were discharged to [facility] with hospice initiation. Instruction for future provider> Please note that pt was not allowed for oral intake and medication per swallowing evaluation. However, It was deferred to patient and family for foot and medication administration leisurely as long as they are aware of risks of aspiration. Family opted out for artificial nutrition and hospice will be initiated today at the time of d/c Follow-up Provider: Bin Franks MD Follow-up with PCP in: 2 weeks Lilia Huber MD Mar 31, 2017 10:44
--- NOTE | 2017-03-31 11:04 | NUR ---
Social Work-discharge: Data:EMR Reviewed. Pt is on day 13 of hospitalization for hypernatremia per H&P. Pt is medically stable for discharge. [facility]A spoke with Cassie from Hospice who confirms they can open with pt today at 1300. Hospice has already delivered DME. [facility] spoke with Nakita at [facility] who confirms they are ready to accept pt, HOLA faxed discharge information to [phone]. BLS order received from . HOLA reviewed chart and feels like pt meets criteria for BLS. HOLA arranged BLS for 1200 pick out hand from [facility]. SW updated pt's family at bedside of discharge time and explained that SW cannot guarantee that insurance will cover the cost of BLS, family agreeable to proceed. Daughter to update mother. Packet created. Rn,UC,pt/family, Hospice, and [facility] all updated and agreeable to plan. Assessment:Pt to return to [facility] on Hospice. Plan:Pt to discharge back to [facility] today via BLS at 1200. Hospice to open with pt at 1300, all equipment has been delivered. Rn,UC,pt/family, Hospice, and [facility] all updated and agreeable to plan. Balbina Gan,JANEL
[2017-03-31 11:38] VITALS: BP 148/81; PULSE 60; RESP 16; O2SAT 96
--- NOTE | 2017-03-31 12:29 | NUR ---
Discharge->[facility] Pt d/c via BLS at 1227, family in room and will be accompanying pt. Receiving nurse Amy called with report. IV d/c. Family denies having questions. All personal belongings left with pt. VSS.
--- NOTE | 2017-03-31 14:08 | PCM.DC.MED ---
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 COMPARISON: None. FINDINGS: Examination is limited secondary to patient body habitus and cooperative ability. Liver: Liver is normal in size and homogeneous in echotexture. Gallbladder: Gallbladder is poorly visualized with an appearance of diffuse increased echogenicity. Biliary ducts: Intrahepatic bile ducts are non-dilated. No gross balloon dilation. Normal is 6-7 mm or less in diameter, or 10 mm or less post- cholecystectomy. Pancreas: Visualized portions of the pancreas are sonographically normal. Spleen: Spleen is not visualized. Kidneys: Kidneys are normal in size and echotexture. Right kidney measures 8.7 cm long; left kidney measures 0.9 cm long. No hydronephrosis or nephrolithiasis. No solid masses. Aorta: Visualized aorta is normal in caliber at less than 3 cm. Iliacs: Proximal common iliac arteries are normal in caliber at less than 2.5 cm. IVC: Intrahepatic inferior vena cava is patent. Miscellaneous: No free abdominal fluid. IMPRESSION: 1. Limited examination. 2. Diffuse increased echogenicity within the gallbladder possibly related to sludge or gallbladder calcification. Dictated by: Lynne Hart M.D. on 03/18/2017 at 20:38 Approved by: Lynne Hart M.D. on 03/18/2017 at 20:41 Brief History HPI obtained by on 03/18 This is 76 yo male with severe dementia diagnosed whern 63, was placed in [facility] due to repeated falls. Family says he is hallucinating and tried to pear picker things he shouldn't also have scoliosis, due to which he leans to one side and has an imbalance of gait. He was fine until last week, family has not seen him for some time. [facility] staff called today saying he is not eating. fam think he was probably accepting some po but not drinking fluids. He has no c/o nausea, vomiting, diarrhea, fevers or pain. Staff at [facility] noted that he was roaming around all night, sleeping during the day. Currently he is fast asleep, awaking only briefly, nurse says he was sitting at the edge of the bed not that long ago. [facility] staff also noted similar behavior. In the eR, CXR was done non acute, no CT because family decided not to since he had one in november. Labs showed hyponatremia at 153, 1L bolus NSS was given then D5W 100 cc/hr was started. Labs allo showed bilirubin of 1.8. VSS. Family says he was talking to them in the ED. UA was done, result pending at this time. Family has never considered peg tubes as pt was eating fine till 1-2 weeks ago. They say he has tolerated haldol ok in the past, pt did not need any psych meds at the facility Patient is admitted to [facility] for anorexia and symptomatic hyponatremia likely secondary to dehydration Hospital Course acute dx Acute on chronic deconditioning in the setting of severe dementia, dehydration, malnutrition. pt was supportively managed by IVF. Patient was seen by Palliated care, family was initially hesitant for hospice earlier the course. However, As per the conversation with the daughter on 03/26, agreed on hospice, DNR/DNI/no PEG for nutrition. Pt was discharged back to [facility] with hospice. 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 Family decided not to proceed with artificial nutrition. However, leisurely feeding permitted per family chronic dx GERD Insomnia anxiety Prostate problem Exam Vital Signs (Last) Date Time Temp Pulse Resp B/P Pulse Ox O2 Delivery O2 Flow Rate FiO2 03/31/17 11:38 36.8 60 16 148/81 96 Room Air Exam pt was examined on the day of d/c Test 03/18/17 09:35 03/18/17 11:40 03/18/17 15:36 03/19/17 06:05 Prothrombin Time 11.5sec (8.1-12.5) Prothromb Time International Ratio 1.07ratio Hold Mark Top Tube Received (Received) Hold Urine Received (Received) Lactic Acid Level 1.6mmol/L (0.4-2.0) Magnesium Level 2.3mg/dL (1.6-2.6) Ammonia 42ug/dL (18-53) Troponin T < 0.010ug/L (0.0-0.011) Procalcitonin 0.05ng/mL (0.00-0.08) Thyroid Stimulating Hormone (TSH) 1.000uIU/mL (0.450-4.500) Free Thyroxine 1.11ng/dL (0.82-1.77) Prealbumin 14mg/dL (20-40) Test 03/20/17 05:50 03/21/17 07:25 03/26/17 05:55 Total Bilirubin 2.1mg/dL (0.0-1.2) Aspartate Amino Transf (AST/SGOT) 37U/L (0-50) Alanine Aminotransferase (ALT/SGPT) 42U/L (0-44) Alkaline Phosphatase 97U/L (25-160) Total Protein 5.7g/dL (6.4-8.4) Albumin 2.9g/dL (3.4-5.0) White Blood Count 6.0th/mm3 (3.8-10.1) Red Blood Count 4.46mil/mm3 (4.40-5.80) Hemoglobin 14.2g/dL (13.8-17.2) Hematocrit 40.2% (41.0-50.0) Mean Corpuscular Volume 90.1fL (81-100) Mean Corpuscular Hemoglobin 31.8pg (27.0-35.0) Mean Corpuscular Hemoglobin Concent 35.3% (32.0-37.0) Red Cell Distribution Width 13.2% (12.3-15.4) Platelet Count 127bil/L (150-400) Neutrophils (%) (Auto) 61.6% (40-74) Lymphocytes (%) (Auto) 24.9% (14-46) Monocytes (%) (Auto) 9.8% (4-12) Eosinophils (%) (Auto) 3.2% (0-5) Basophils (%) (Auto) 0.2% (0-3) Sodium Level 135mEq/L (134-144) Potassium Level 4.1mEq/L (3.5-5.2) Chloride Level 102mEq/L (97-108) Carbon Dioxide Level 21mmol/L (18-29) Blood Urea Nitrogen 7mg/dL (8-27) Creatinine 0.61mg/dL (0.76-1.27) Estimat Glomerular Filtration Rate 137mL/min (>59) Glucose Level 98mg/dL (60-99) Calcium Level 7.9mg/dL (8.5-10.1) Microbiology Results PROCEDURE: US ABDOMEN ([id number]) INDICATIONS: elevated bili IMPRESSION: 1. Limited examination. 2. Diffuse increased echogenicity within the gallbladder possibly related to sludge or gallbladder calcification. Dictated by: Lynne Hart M.D. on 03/18/2017 at 20:38 Approved by: Lynne Hart M.D. on 03/18/2017 at 20:41 PROCEDURE: X-RAY CHEST ONE VIEW, PORTABLE ([id number]) INDICATIONS: lethargy, altered mental status IMPRESSION: No acute pulmonary process. Dictated by: Lynne Hart M.D. on 03/18/2017 at 9:55 Approved by: Lynne Hart M.D. on 03/18/2017 at 9:55 Discharge Medications Discharge Medications Aspirin (Aspirin) 81 Mg Tablet 81 MG PO DAILY (Reported) Donepezil (Donepezil) 10 Mg Tablet 10 MG PO HS (Reported) Ibuprofen (Ibuprofen) 800 Mg Tablet 800 MG PO DAILY (Reported) Ranitidine (Ranitidine) 150 Mg Capsule 150 MG PO BID (Reported) Trazodone (Trazodone) 50 Mg Tablet 25 MG PO HS (Reported) As needed Acetaminophen (Acetaminophen) 325 Mg Capsule 650 MG PO Q4H PRN PRN For Pain ( Reported) Bisacodyl (Dulcolax Rectal) 10 Mg Supp.rect 10 MG RC DAILY PRN PRN For Constipation (Reported) Lorazepam (Lorazepam) 0.5 Mg Tablet 0.5 MG PO BID PRN PRN For Anxiety (Reported ) Magnesium Hydroxide (Milk of Magnesia) 400 Mg/5 Ml Oral.susp 30 ML PO DAILY PRN PRN For Constipation (Reported) Followup Plan Disposition: [facility], ASSISTED Discharge Diet: Other Discharge Activity: Other Patient Instructions You were hospitalized with high sodium level confusion, likely related to your advanced dementia and poor oral intake. You were treated supportively with IV fluid. You were discharged to [facility] with hospice initiation. Instruction for future provider> Please note that pt was not allowed for oral intake and medication per swallowing evaluation. However, It was deferred to patient and family for foot and medication administration leisurely as long as they are aware of risks of aspiration. Family opted out for artificial nutrition and hospice will be initiated today at the time of d/c Follow-up Provider: Bin Franks MD Follow-up with PCP in: 2 weeks Time spent 65min Lilia Huber MD Mar 31, 2017 14:08
== END 2017-03-31 12:30 | disposition hospice, home (50) | DRG 640 ==
LOC: SED 08:36 → EDBD 08:36 → UNDOADMIN 12:04 → MPC 12:04
PROVIDERS: ADMIT Family Medicine; ATTEND Internal Medicine
PROC: 4A033R1 Measurement of Arterial Saturation, Peripheral, Percutaneous Approach (ICD-10-PCS; principal; 2017-03-18)
DX: E87.0 Hyperosmolality and hypernatremia (principal); G93.49 Other encephalopathy; E43 Unspecified severe protein-calorie malnutrition; B37.0 Candidal stomatitis; R44.3 Hallucinations, unspecified; G30.0 Alzheimer's disease with early onset; F02.80 Dementia in other diseases classified elsewhere, unspecified severity, without behavioral disturbance, psychotic disturbance, mood disturbance, and anxiety; E86.0 Dehydration; Z51.5 Encounter for palliative care; R29.6 Repeated falls; Z66 Do not resuscitate; R13.10 Dysphagia, unspecified; E80.6 Other disorders of bilirubin metabolism; K21.9 Gastro-esophageal reflux disease without esophagitis; Z68.23 Body mass index [BMI] 23.0-23.9, adult; Z79.82 Long term (current) use of aspirin; Z87.891 Personal history of nicotine dependence